=== PATIENT | female | born 1940 | race Caucasian/White ===

== ENCOUNTER → 2016-04-16 09:29 | Outpatient (CLI) | payer MEDICARE ==
[2016-03-03 06:26] VITALS: BMI 40.6
[~2016-04-16 09:29] MED LIST: ADVAIR HFA [SP]12 GM INH; ALBUTEROL2.5 MG/3 M INH; BUMEX 1 MG TAB1 MG PO; BUMEX 1 MG/1 MG/4 ML IV; CARTIA XT120 MG PO; CELEXA20 MG PO; COUMADIN1 MG PO; COUMADIN2 MG PO; CYCLOBENZAPRINE10 MG PO; FLUTICASONE PRO16 GM NASAL; FUROSEMIDE40 MG PO; HYDROCODON-ACE1 EAC7 PO; IPRAT-ALBUT 0.5-3 ML UPD; K-DUR20 MEQ PO; LEVAQUIN500 MG PO; METOLAZONE2.5 MG PO; PRAVACHOL40 MG PO; PROAIR HFA8.5 GM INH; PROPAFENONE HC150 MG PO; PROTONIX40 MG PO; SINGULAIR10 MG PO; STERAPRED 5MG 65 M1 PO; SYMBICORT 16010.2 GM INH; VIBRAMYCIN 100100 MG PO; VITAMIN D31000 UNI2 PO
== END | disposition home or self-care (01) ==
LOC: D.CT 09:29
DX: D12.6 Benign neoplasm of colon, unspecified (principal)

== ENCOUNTER 2016-05-05 07:30 | Inpatient (IN) | payer MEDICARE ==
[2016-05-02 11:55] LABS: HEMATOCRIT 37.4 % (36.0-48.0); HEMOGLOBIN 11.2 g/dL (12-16); MCH 27.3 pg (26.0-34.0); MCHC 29.9 g/dL (31.0-37.0); MCV 91.2 fL (80.0-100.0); RBC 4.1 10x6/uL (4.00-5.40); RDW 16.9 % (11.5-14.5); WBC 15.2 10x3/uL (4.8-10.8)
[2016-05-02 12:13] LABS: ANION GAP 9.5 mmol/L (8-16); CALCIUM 9.3 mg/dL (8.5-10.1); CARBON DIOXIDE 39.8 mmol/L (21.0-32.0); POTASSIUM - SERUM 5.3 mmol/L (3.5-5.1)
[~2016-05-05] VITALS: Ht 165.1 cm; Wt 109.8 kg
[~2016-05-05 07:30] MED LIST changes: -ADVAIR HFA [SP]12 GM INH; -BUMEX 1 MG TAB1 MG PO; -BUMEX 1 MG/1 MG/4 ML IV; -COUMADIN1 MG PO; -FLUTICASONE PRO16 GM NASAL; -IPRAT-ALBUT 0.5-3 ML UPD; -K-DUR20 MEQ PO; -LEVAQUIN500 MG PO; -PROTONIX40 MG PO; -STERAPRED 5MG 65 M1 PO
[2016-05-05 08:25] LABS: APTT 25.4 SECONDS (22.8-39.4); INR 1.05 (0.85-1.17); PROTIME 13.6 SECONDS (11.6-15.0)
[2016-05-05 08:39] VITALS: BP 149/85; BMI 40.3
--- NOTE | 2016-05-05 13:23 | NUR ---
1420 UPDATED ON PROGRESS THEY WILL REMAIN AT EXT 2500 IN OUTPATIENT WAITING ROOM SO WE CAM UPDATE THEM HOURLY AND DR COTTO CAN FIND THEY AFTER THE SUGERY IS COMPLETED
[2016-05-05 15:20] VITALS: BP 145/76
[2016-05-05 15:24] VITALS: BP 145/76; BMI 40.3
--- NOTE | 2016-05-05 15:27 | NUR ---
RECIEVED TO ROOM 2201 FROM RECOVERY ROOM VIUA BED ACCOMPANIED BY SPOSE NOTED 3 DRESSING INTACT TO ABDOMEN LAP SITED 1 LARGE LOWER MIDLINE 2 SMALL 1 MIDLINE WITH SCANT DRAINAGE NOT3ED TO DRESSING 1 SMALL TO LEFT UPPER QUADRANT NO DRAINAGE NOTED. AROUSED TO VERBAL STIMULI AND ANSWERS QUESTIONS APPROPRIATLY. KO CATHETER IN PLACE AND PATENT TO CLEAR YELLOW URINE TO GRAVILTY DRAIN PIV TO RIGHT WRIST PATENT TO FLUIDS PER ORDER.
[2016-05-05 19:00] VITALS: BP 155/87
--- NOTE | 2016-05-05 19:20 | NUR ---
RECIEVED SHIFT REPORT. PT IS LYING IN BED. ALERT AND ORIENTED AND ABLE TO VERBALIZE NEEDS. IV IS PATENT AND FLUIDS ARE RUNNING PER ORDER. O@ 2 PER NASAL CANNULA. DRESSINGS TO ABDOMEN C/D/I. PT STATES PAIN IS 3/10. NO NEEDS ARE VERBALIZED AT THIS TIME. AT BEDSIDE. WILL CONTINUE TO MONITOR. SIDE RAILS ARE UP X 2. BED IS IN LOWEST POSITION. SCD'S ON. CALL LIGHT IS WITHIN REACH.
--- NOTE | 2016-05-05 21:21 | NUR ---
SHIFT ASSESSMENT COMPLETED. NIGHT MEDS GIVEN WITH NO PROBLEMS. NO NEEDS ARE VOICED. WILL MONITOR. SIDE RAILS X 2. BED LOW. CALL LIGHT IN REACH. AT BEDSIDE.
--- NOTE | 2016-05-05 23:07 | NUR ---
PT C/O PAIN 12/14. MORPHINE SQUARE CUTTER HOOKED UP PER ORDER. INSTRUCTIONS ON USE PROVIDED TO PT. UNDERSTANDING VERBALIZED. SIDE RAILS X 2. BED LOW. CALL LIGHT IN REACH.
[2016-05-06 04:00] VITALS: BP 147/82
[2016-05-06 06:46] LABS: HEMATOCRIT 33.9 % (36.0-48.0); HEMOGLOBIN 10.1 g/dL (12-16); MCH 26.7 pg (26.0-34.0); MCHC 29.8 g/dL (31.0-37.0); MCV 89.7 fL (80.0-100.0); PLATELET COUNT 483 10x3/uL (130-400); RBC 3.78 10x6/uL (4.00-5.40); WBC 26.5 10x3/uL (4.8-10.8)
[2016-05-06 07:07] LABS: ANION GAP 12.3 mmol/L (8-16); CALCIUM 9.2 mg/dL (8.5-10.1); CARBON DIOXIDE 30.7 mmol/L (21.0-32.0); CREATININE - SERUM 1.3 mg/dL (0.6-1.3); MAGNESIUM - SERUM 1.6 mg/dL (1.8-2.4)
[2016-05-06 07:45] LABS: LYMPHOCYTES 5 % (15-50); MONOCYTES 10 % (2-11); NEUTROPHILS 84 % (40-80); PLATELET ESTIMATE INCREASED
--- NOTE | 2016-05-06 08:00 | NUR ---
PT ASSESSMENT COMPLETE NO ACUTE DISTRESS NOTED DRESSING X 3 INTACT CLEAN AND DRY TO ABDOMEN. REMAINS NPO EXCEPT ICE CHIPS AND SIPS WITH MEDS. SEE FLOWSHEET FOR ASSESSMENT
--- NOTE | 2016-05-06 08:11 | OP ---
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 PROCEDURE PERFORMED: Laparoscopic right hemicolectomy. ANESTHESIA: General. COMPLICATIONS: None. SPECIMENS: Right colon. Case was clean contaminated. ESTIMATED BLOOD LOSS: 75 cc. OPERATIVE COURSE: After consent was obtained, the patient was taken to the operating room and placed in the supine position on the operating table. Next, general anesthesia was given via endotracheal intubation. Thereafter, a timeout was taken to confirm the correct patient and procedure. The abdomen was prepped and draped in typical sterile fashion. An Ioban dressing was placed. Local anesthetic was injected just above the umbilicus. A stab incision was made with 11-blade scalpel. Using a 5-mm bladeless optical trocar, the abdomen was entered under direct laparoscopic vision. Adequate pneumoperitoneum was achieved. Abdominal cavity was inspected. No evidence of bowel injury. No evidence of bleeding. The patient had adhesions of the greater omentum to her ventral hernia repair mesh. The greater omentum was gently swept off the mesh in position with the Harmonic scalpel dissection. Once this was complete, a second 5-mm trocar was placed into the suprapubic position, a 12-mm trocar was placed in the left lateral quadrant. At this time, the colon was identified. The cecum was mobilized off the lateral pelvic side wall. The white line of Toldt was taken with the Harmonic scalpel and blunt dissection. There was a large cyst associated with the right kidney, which required dissection to free the colon. The hepatic flexure is taken with the Harmonic scalpel. The ileocolonic vessels were identified. A mesenteric window was created. The vessels were then taken with the vascular load linear cutting stapler. Next, the small lower midline incision was made with a 15 blade scalpel. Dissection continued to the level of the external oblique fascia using electrocautery. The 5-mm trocar removed. The external oblique fascia was opened with electrocautery. At this time, the remaining portion of the incision was made, first fascia was opened direct vision, then the Harmonic scalpel and Adrian retractor was replaced. The GelPort was placed. The abdomen was reinsufflated. The remaining small portion of the mobilization of transverse colon was completed. The cecum was grasped and delivered extracorporealized through the Adrian retractor, the GelPort was removed. A mesenteric window was created in the transverse colon. The colon was transected with the 60 green load stapler. At approximately 6-8 cm on the terminal ileum, a second mesenteric window was created at the termial. The ileum was transected with a green load stapler. Mesentery was taken with the Harmonic scalpel. The specimen was then passed off the field and sent for permanent pathology. Next, a functional [id number] OPERATIVE REPORT [id number] IVNÁ NEWMAN anastomosis was created. Enterotomies were created using the 6 mm green load stapler, a common enterotomy was created. A second ____ was then used to close the common enterotomy. The staple line was then created using a 2-0 Stratafix suture and the ileocolonic anastomosis returned to the abdomen. An angioport was replaced. The abdomen was reinsufflated. Camera was reinserted. The abdominal cavity was inspected. There was no evidence of bowel injury. No evidence of bleeding. The abdomen was copiously irrigated and suctioned. The ileocolic anastomosis was placed into the right upper quadrant. At this time, all remaining instruments were removed. The abdomen was desufflated. Trocars removed. The GelPort was removed. The fascia was closed with a #1 looped PDS. Skin was closed with almita. At the end of the case, all needle and instrument counts were correct. No complications occurred. The patient was extubated and transferred to the PACU in stable condition. TRANSINT:[id number] Voice Confirmation ID: [id number] DOCUMENT ID: [id number] LORENZO COTTO MD at 0811 CC: [id number] DICTATION DATE: 05/05/16 1458 RESOURCE PROGRAM TEACHER: 05/05/16 2308 ADM IN [id number] [place] [address]
--- NOTE | 2016-05-06 08:30 | NUR ---
LYING IN BED,WITHOUT DISTRESS.CALL LIGHT IN REACH
[2016-05-06 08:39] VITALS: BP 154/84
[2016-05-06 11:08] VITALS: Ht 165.1 cm; Wt 109.8 kg
--- NOTE | 2016-05-06 11:38 | NUR ---
Patient Name: IVÁN NEWMAN Admission Status: Elective Accout number: [id number] Admission Date: 05-05-2016 : 1940 Admission Diagnosis: Attending: SKYE Current LOS: 1 Anticipated DC Date: 05-06-2016 Planned Disposition: Home Primary Insurance: [employer] PF Discharge Planning Comments: CM MET WITH PATIENT REGARDING D/C NEEDS AND PLANS. PATIENT STATED SHE LIVES WITH HER SPOUSE (ZACK) AND HE WILL DRIVE HER HOME AT DISCHARGE. PATIENT STATED SHE HAS A RAMP TO ENTER HOME AND NO STAIRS INSIDE. PATIENT STATED SHE IS INDEPENDENT WITH HER CARE AND HAS A WALKER, WHEELCHAIR, OXYGEN, NEBULIZER, AND PORTABLE O2 AT HOME. [email or web address] IS THE SUPPLIER FOR HER OXYGEN PER PATIENT. PATIENTS PCP IS DR. MELENDEZ AND PHARMACY IS [facility]. PATIENT DOES NOT WANT HOME HEALTH AT THIS TIME. PATIENT STATED SHE WANTS TO WAIT AND SEE WHAT DOCTOR SAYS. CM WILL CONTINUE TO FOLLOW PATIENT WITH D/C NEEDS AND PLANS. PCP DR. [facility]- [phone] ZACK (SPOUSE) [phone] Heavy Lift Rigger: Lexiepolly Berger Is the patient Alert and Oriented? Yes 0 * How many steps to enter\exit or inside your home? RAMP 0 * PCP DR. MELENDEZ 0 * Pharmacy [facility] [place] 0 * Preadmission Environment Home with Family 0 * ADLs Independent 0 * Equipment Nebulizer Oxygen Walker Wheelchair 0 * Other Equipment PORTABLE O2 OXYGEN SUPPLIE BY [email or web address] 0 * List name and contact numbers for known caregivers / representatives who currently or will assist patient after discharge: ZACK [phone] 0 * Community resources currently utilized None 0 * Additional services required to return to the preadmission environment? Yes 0 * Can the patient safely return to the preadmission environment? Yes 0 * Has this patient been hospitalized within the prior 30 days at any hospital? No 0 Grand Total: 0
[2016-05-06 12:26] VITALS: BP 121/77
[2016-05-06 16:58] VITALS: BP 130/80
--- NOTE | 2016-05-06 18:30 | NUR ---
PT WAS UP WITH PHYSICAL THERAPY TODAY AMBULATED WELL DIET PROGRESSED TO CLEAR LIQUIDS PER DR KIRTI JOHNSON.
[2016-05-06 19:00] VITALS: BP 125/71
--- NOTE | 2016-05-06 19:15 | NUR ---
RECIEVED SHIFT REPORT. PT IS LYING IN BED. ALERT AND ORIENTED AND ABLE TO VERBALIZE NEEDS. IV IS PATENT AND FLUIDS ARE RUNNING PER ORDER. O2 @ 2 PER NASAL CANNULA. DRESSINGS TO ABDOMEN C/D/I. PT IS AMBULATORY WITH ASSISTANCE. KO IS DRAINING URINE BY GRAVITY. PT STATES PAIN IS 1/10 WITH CASTINGS DRAFTER PUMP. SCD'S ON. NO NEEDS ARE VERBALIZED AT THIS TIME. WILL CONTINUE TO MONITOR. AT BEDSIDE. SIDE RAILS ARE UP X 2. BED IS IN LOWEST POSITION. CALL LIGHT IS WITHIN REACH.
--- NOTE | 2016-05-06 21:11 | NUR ---
SHIFT ASSESSMENT COMPLETED. NIGHT MEDS GIVEN WITH NO PROBLEMS. NO NEEDS ARE VOICED. WILL MONITOR. FAMILY AT BEDSIDE. SIDE RAILS X 2. BED LOW. CALL LIGHT IN REACH.
[2016-05-07 04:00] VITALS: BP 188/90
[2016-05-07 07:57] VITALS: BP 149/68
--- NOTE | 2016-05-07 08:15 | NUR ---
UP IN CHAIR AT THIS TIME. KO CATHETER PATENT AND DRAINING DARK, CONCENTRATED URINE WITHOUT DIFFICULTY. IV TO LEFT HAND PATENT WITH NO S/S OF INFILTRATION PRESENT. PT C/O PAIN 1/10 INCISIONALLY. MEDIA SENIOR RECRUITER IN USE FOR PAIN CONTROL. DRESSING TO ABDOMEN INTACT. BOWEL SOUNDS HYPOACTIVE X4 QUADS. OXYGEN ON 2L VIA NC, WHICH IS PT'S HOME DOSE. AT BEDSIDE. ALERT AND ORIENTED X4. CALL LIGHT IN REACH AND PT TOLERATING CLEAR LIQUID DIET WITHOUT DIFFICULTY. PT SAID SHE DID PASS FLATUS LAST NIGHT. DENIES FURTHER NEEDS. WILL CONTINUE WITH PLAN OF CARE.
[2016-05-07 08:56] LABS: BASOPHILS 0.1 % (0.0-2.0); EOSINOPHILS 0.2 % (0-7); HEMATOCRIT 30.8 % (36.0-48.0); HEMOGLOBIN 9.1 g/dL (12-16); IMMATURE GRANULOCYTES 0.5 % (0-5); LYMPHOCYTES 12.7 % (15-50); MCH 27.3 pg (26.0-34.0); MCHC 29.5 g/dL (31.0-37.0); MCV 92.5 fL (80.0-100.0); MEAN PLATELET VOLUME 8.8 fL (7.4-10.4); MONOCYTES 13.9 % (2-11); NEUTROPHILS 72.6 % (40-80); PLATELET COUNT 367 10x3/uL (130-400); RBC 3.33 10x6/uL (4.00-5.40); RDW 17.2 % (11.5-14.5)
[2016-05-07 08:59] LABS: ANION GAP 8.5 mmol/L (8-16); CALCIUM 9.2 mg/dL (8.5-10.1); CARBON DIOXIDE 35.2 mmol/L (21.0-32.0); CREATININE - SERUM 1.4 mg/dL (0.6-1.3); POTASSIUM - SERUM 4.7 mmol/L (3.5-5.1)
--- NOTE | 2016-05-07 10:50 | NUR ---
BACK IN BED AT THIS TIME. IV LASIX ADMINISTERED PER ORDER AND IV FLUIDS DECREASED TO 75 ML/HR. PT DENIES PAIN AT PRESENT TIME. CALL LIGHT IN REACH, WILL CONTINUE WITH PLAN OF CARE.
[2016-05-07 11:57] VITALS: BP 111/76
--- NOTE | 2016-05-07 12:50 | NUR ---
OBSERVED KO BAG AT THIS TIME AND URINE PRODUCTION HAS INCREASED WITH AN ADDED 400ML OF CLEAR, YELLOW URINE IN THE BAG SINCE ADMINISTRATION OF IV LASIX. PT DENIES NEEDS. SPOOLER OPERATOR IN USE FOR PAIN. WILL CONTINUE WITH PLAN OF CARE.
--- NOTE | 2016-05-07 14:40 | NUR ---
SCHEDULED MEDICATIONS ADMINSITERED AT THIS TIME. KO CATHETER D/C WITH CATH TIP INTACT. PT TOLERATED WITHOUT COMPLAINTS. TOLD PT TO CALL WHEN SHE FELT THE URGE TO VOID. PT VERBALIZED UNDERSTANDING. CALL LIGHT IN REACH, UP IN CHAIR AT THIS TIME. WILL CONTINUE WITH PLAN OF CARE.
[2016-05-07 16:23] VITALS: BP 130/55
--- NOTE | 2016-05-07 17:03 | NUR ---
OT NOTE: PT COMPLETED BUE AROM EXERCISES IN ALL PLANE OF MOTION FOR INCREASED ACTIVITY TOLERANCE. PT COMPLETED BED MOBILITY WITH HARI Burton. THANK YOU, AURELIO UPTON/Dann
--- NOTE | 2016-05-07 17:30 | NUR ---
ASSISTED PT TO SIT UP AT THE BEDSIDE TO HAVE DINNER AT THIS TIME. PT HAS NOT VOIDED AT THIS TIME, BUT DOES NOT FEEL THE URGE TO VOID AND IS NOT EXPERIENCING BLADDER DISTENTION. DENIES FURTHER NEEDS. ASSISTANT TRACK AND FIELD COACH REFILLED PER ORDER. CALL LIGHT IN REACH, WILL CONTINUE WITH PLAN OF CARE.
--- NOTE | 2016-05-07 20:42 | NUR ---
AWAKE,ALERT,NO COMPLAINTS VOICED, IV INFUSING TO LEFT HAND AT 75 CC/HR WIHTOUT REDNESS OR EDEMA NOTED.DRSG TO ABD DRY AND INTACT. BOWEL SOUNDS PRESENT. CLIENT SERVICES DIRECTOR MORPHINE IN USE FOR PAIN CONTRO.CL IN REACH.
[2016-05-07 21:00] VITALS: BP 147/77
[2016-05-08] VITALS: BP 145/78
--- NOTE | 2016-05-08 01:54 | NUR ---
RESTING QUIETLY. NO DISTRESS NOTED. CL IN REACH. FAMILY REMAINS AT BEDSIDE.
[2016-05-08 04:00] VITALS: BP 152/80
--- NOTE | 2016-05-08 04:00 | NUR ---
PATIENT SLEEPING WITH NO DISTRESS NOTED. O2 @ 2L VIA NC. IV TO RIGHT HAND PATENT WITH NO REDNESS OR SWELLING. DRESSINGS TO ABD CDI. SCD'S ON. DAUGHTER AT BEDSIDE. SRX2. BED LOW. CALL LIGHT WITHIN REACH.
[2016-05-08 05:52] LABS: BASOPHILS 0.1 % (0.0-2.0); EOSINOPHILS 0.5 % (0-7); HEMATOCRIT 29.7 % (36.0-48.0); HEMOGLOBIN 8.7 g/dL (12-16); IMMATURE GRANULOCYTES 0.4 % (0-5); LYMPHOCYTES 13.6 % (15-50); MCH 27.2 pg (26.0-34.0); MCHC 29.3 g/dL (31.0-37.0); MCV 92.8 fL (80.0-100.0); MEAN PLATELET VOLUME 9.1 fL (7.4-10.4); MONOCYTES 12.7 % (2-11); NEUTROPHILS 72.7 % (40-80); PLATELET COUNT 344 10x3/uL (130-400); RDW 17.2 % (11.5-14.5); WBC 17.5 10x3/uL (4.8-10.8)
--- NOTE | 2016-05-08 06:03 | NUR ---
NO CHANGE IN ASSESSMENT. CL IN REACH.
[2016-05-08 06:30] LABS: ANION GAP 11.8 mmol/L (8-16); CALCIUM 8.9 mg/dL (8.5-10.1); CARBON DIOXIDE 31.4 mmol/L (21.0-32.0); CREATININE - SERUM 1.1 mg/dL (0.6-1.3); MAGNESIUM - SERUM 1.3 mg/dL (1.8-2.4); PHOSPHOROUS 3.7 mg/dL (2.5-4.9); POTASSIUM - SERUM 5.2 mmol/L (3.5-5.1)
--- NOTE | 2016-05-08 07:52 | NUR ---
PATIENT REMAINS IN CONTACT ISOLATION FOR E COLI IN URINE. ALERT/ORIENT X4. VOICES NO NEES THIS AM. CALL LIGHT WITHIN REACH
--- NOTE | 2016-05-08 07:56 | NUR ---
PATIENTS DAUGHTER IN ROOM. PATIENT ALERT/ORIENT X4. OXYGEN ON AT 2L PER N/C. D5 LR WITH 20K RUNNING. RIGHT HAND PHERIAL. SCD'S ON. CALL LIGHT WITHIN REACH. VOICES NO PAIN/DISC OR OTHER NEEDS AT THIS TIME
[2016-05-08 08:08] VITALS: BP 153/78
--- NOTE | 2016-05-08 09:45 | NUR ---
PATIENT REFUSED FLONASE NASAL SPRAY
--- NOTE | 2016-05-08 10:24 | NUR ---
NUTRITION MONITORING & EVAL CHART RRVIEWED. CLEAR LIQUID DIET STARTED. WILL MONITOR DIET ADVANCEMENT, PT PROGRESS. RD FOLLOWING
[2016-05-08 11:18] VITALS: BP 120/58
--- NOTE | 2016-05-08 13:49 | NUR ---
PATIENT CONTINUES ON TELEMTRY. CONTROLED A-FIB, WITH BBB OF 85. OXYGEN REMAINS ON PER N/C AT 2L. PO 97%
[2016-05-08 15:15] VITALS: BP 127/62
--- NOTE | 2016-05-08 16:39 | NUR ---
OT NOTE: PT COMPLETED BED MOB WITH MOD/MAX A. PT COMPLETED BUE AROM EXERCISES FOR INCREASED I WITH ADLS. THANK YOU, AURELIO UPTON/Dann
--- NOTE | 2016-05-08 17:30 | NUR ---
PATIENTS IN ROOM WITH PATIENT. ON A CLEAR LIQUID DIET. TOLERATING WELL.
[2016-05-08 20:00] VITALS: BP 145/77
[2016-05-09] VITALS: BP 136/62
--- NOTE | 2016-05-09 01:10 | NUR ---
REC'D. AT CHGE OF SHIFT IN BED WATCHING TV. AT BEDSIDE. DENIES ANY PAIN NAUSEA OR VOMITTING AT PRESENT TIME
[2016-05-09 04:00] VITALS: BP 152/77
--- NOTE | 2016-05-09 04:28 | NUR ---
PATIENT SLEEPING WITH NO DISTRESS NOTED. AGREE WITH SERVICE STATION ATTENDANT ASSESSMENT.
[2016-05-09 05:55] LABS: BASOPHILS 0.1 % (0.0-2.0); EOSINOPHILS 0 % (0-7); HEMATOCRIT 28.4 % (36.0-48.0); HEMOGLOBIN 8.7 g/dL (12-16); IMMATURE GRANULOCYTES 0.5 % (0-5); LYMPHOCYTES 5.1 % (15-50); MCH 27.6 pg (26.0-34.0); MCHC 30.6 g/dL (31.0-37.0); MEAN PLATELET VOLUME 9.1 fL (7.4-10.4); MONOCYTES 2.4 % (2-11); NEUTROPHILS 91.9 % (40-80); PLATELET COUNT 333 10x3/uL (130-400); RBC 3.15 10x6/uL (4.00-5.40); RDW 17.3 % (11.5-14.5); WBC 16.6 10x3/uL (4.8-10.8)
[2016-05-09 06:00] LABS: MCV 90.2 fL (80.0-100.0)
[2016-05-09 06:24] LABS: CARBON DIOXIDE 29.9 mmol/L (21.0-32.0); CREATININE - SERUM 0.9 mg/dL (0.6-1.3); POTASSIUM - SERUM 4.9 mmol/L (3.5-5.1)
[2016-05-09 06:27] LABS: MAGNESIUM - SERUM 2.3 mg/dL (1.8-2.4); PHOSPHOROUS 2.6 mg/dL (2.5-4.9)
[2016-05-09 07:55] VITALS: BP 134/80
--- NOTE | 2016-05-09 09:00 | NUR ---
PT UP IN CHAIR, ASSESSMENT COMPLETE, BOWEL SOUNDS HYPOACTIVE QX4, EXPIRATORY WHEEZING ON RIGHT SIDE, NO COMPLAINTS OF PAIN AT THIS TIME, JUST FINISHED BATH AND MORNING ADLS, O2 @ 2L, AT BEDSIDE, ALERT AND ORIENTED, CALL LIGHT WITHIN REACH, WILL CONTINUE TO MONITOR.
--- NOTE | 2016-05-09 10:00 | NUR ---
AMBULATING IN HALLWAY INDEPENDENTLY AT THIS TIME. DENIES NEEDS. ALERT AND ORIENTED X4 WITH RESPIRATIONS EVEN AND NON LABORED. WILL CONTINUE WITH PLAN OF CARE.
--- NOTE | 2016-05-09 10:00 | NUR ---
AMBULATING IN HALLWAY AT THIS TIME WITH PHYSICAL THERAPY. OXYGEN ON 2L VIA NC WITH RESPIRATIONS EVEN AND NON LABORED. ALERT AND ORIENTED X4. WILL CONTINUE WITH PLAN OF CARE.
--- NOTE | 2016-05-09 11:10 | NUR ---
PT MEDICATIONS ADMINISTERED PER eMAR, PT UP TO BATHROOM WITH WALKER.
[2016-05-09 11:29] VITALS: BP 161/97
--- NOTE | 2016-05-09 14:10 | NUR ---
PT TURKEY PINNER DISCONTINUED, ORAL PAIN MEDICATION STARTED, IV SALINE LOCKED EXCEPT WHEN ANTIBIOTIC INFUSING. WILL CONTINUE PLAN OF CARE, CALL LIGHT IN REACH
[2016-05-09 15:04] VITALS: BP 155/90
--- NOTE | 2016-05-09 17:30 | NUR ---
REMAINS UP IN CHAIR AND TOLERATING FULL LIQUID DIET WITHOUT DIFFICULTY. DENIES PAIN AT THIS TIME. CALL LIGHT IN REACH, WILL CONTINUE WITH PLAN OF CARE.
[2016-05-09 20:00] VITALS: BP 155/77
[2016-05-10] VITALS: BP 150/75
--- NOTE | 2016-05-10 00:40 | NUR ---
PT SITTING IN CHAIR AT BEDSIDE PLAYING CARDS WITH FAMILY IV D/C DUE TO IV CATH PINCHED OFF AND NOT INFUSING 24G STARTED IN RIGHT THUMB AND FLUSHED WITH NO PROBLEM SECURED AND IVP FROM LEFT WRIST REMOVED AND CATH INTACT NO INFILTRATION OBSERVED. CALL LIGHT IN REACH SRX2 BED LOW AND LOCKED CALL LIGHT IN REACH SRX2 WILL MONITOR
[2016-05-10 04:00] VITALS: BP 158/91
[2016-05-10 05:04] LABS: BASOPHILS 0 % (0.0-2.0); EOSINOPHILS 0 % (0-7); HEMATOCRIT 28.4 % (36.0-48.0); HEMOGLOBIN 8.5 g/dL (12-16); IMMATURE GRANULOCYTES 0.5 % (0-5); LYMPHOCYTES 7.7 % (15-50); MCH 26.9 pg (26.0-34.0); MCHC 29.9 g/dL (31.0-37.0); MCV 89.9 fL (80.0-100.0); MEAN PLATELET VOLUME 8.7 fL (7.4-10.4); MONOCYTES 5.6 % (2-11); NEUTROPHILS 86.2 % (40-80); RBC 3.16 10x6/uL (4.00-5.40); RDW 17.3 % (11.5-14.5); WBC 15.8 10x3/uL (4.8-10.8)
[2016-05-10 05:13] LABS: PLATELET COUNT 425 10x3/uL (130-400)
[2016-05-10 05:21] LABS: ANION GAP 10.1 mmol/L (8-16); CALCIUM 8.9 mg/dL (8.5-10.1); CARBON DIOXIDE 31.5 mmol/L (21.0-32.0); CREATININE - SERUM 1.1 mg/dL (0.6-1.3); INR 1.35 (0.85-1.17); POTASSIUM - SERUM 4.6 mmol/L (3.5-5.1); PROTIME 16.5 SECONDS (11.6-15.0)
[2016-05-10 05:27] LABS: PHOSPHOROUS 3.5 mg/dL (2.5-4.9)
--- NOTE | 2016-05-10 07:05 | NUR ---
PATIENT RECEIVED SITTING UP ON SIDE OF BED ALERT. NO SIGNS OF DISTRESS NOTED. DENIES PAIN. BED IN LOW POSITION. CALL LIGHT IN REACH. GUEST AT BEDSIDE.
[2016-05-10 08:28] VITALS: BP 164/89
--- NOTE | 2016-05-10 09:08 | NUR ---
SITTING UP ON SIDE OF BED ALERT WITH FAMILY PRESENT. NO SIGNS OF DISTRESS NOTED. SCHEDULED MEDICATION ADMINISTERED. IVF INITIATED PER ORDER. IV TO RIGHT HAND PATENT. FLUSHES EASY. NO REDNESS OR INFLAMMATION NOTED. DENIES PAIN AND OTHER NEEDS. SIDE RAILS UP X2. BED IN LOW POSITION. CALL LIGHT IN REACH.
--- NOTE | 2016-05-10 10:55 | NUR ---
PATIENT IN MID DOM[place] POSITION RESTING WITH EYES CLOSED. RESPIRATIONS EVEN AND UNLABORED. WAKES EASY. SCHEDULED MEDICATION ADMINISTERED. FAMILY AT BEDSIDE. DENIES PAIN. SIDE RAILS UP X2. BED IN LOW POSITION. CALL LIGHT IN REACH.
[2016-05-10 12:00] VITALS: BP 155/90
--- NOTE | 2016-05-10 13:45 | NUR ---
PATIENT SITING UP IN CHAIR ALERT. RESPIRATIONS EVEN AND UNLABORED. RATES PAIN 7/10. 1 TAB NORCO ADMINISTERED PER PRN ORDER. DENIES FURTHER NEEDS. CALL LIGHT IN REACH. FAMILY PRESENT.
[2016-05-10 16:03] VITALS: BP 130/70
--- NOTE | 2016-05-10 18:00 | NUR ---
PATIENT ALERT IN HIGH DOMINGUEZ POSITION. NO SIGNS OF DISTRESS NOTED. DENIES NEEDS. FAMILY AT BEDSIDE. SIDE RAILS UP X2. BED IN LOW POSITION. CALL LIGHT IN REACH.
[2016-05-10 20:00] VITALS: BP 161/82
--- NOTE | 2016-05-10 21:19 | NUR ---
PT SITTING IN CHAIR AT BEDSIDE FAMILY IN ROOM AT PT SIDE PT STATES " IT IS A BETTER NIGHT I HAD A BAD NIGHT LAST NIGHT" PT DENIES NEEDS WANTS OR PAIN AT THIS TIME. IVP TO RIGHT HAND NO INFILTRATION OBSERVED BED LOW AND LOCKED CALL LIGHT IN REACH SRX2 RESPERATIONS EVEN AND UNLABORED WILL MONITOR
[2016-05-11 04:00] VITALS: BP 168/79
[2016-05-11 05:14] LABS: BASOPHILS 0 % (0.0-2.0); EOSINOPHILS 0 % (0-7); HEMATOCRIT 29.1 % (36.0-48.0); HEMOGLOBIN 8.9 g/dL (12-16); IMMATURE GRANULOCYTES 0.5 % (0-5); MCH 27.3 pg (26.0-34.0); MCHC 30.6 g/dL (31.0-37.0); MCV 89.3 fL (80.0-100.0); MEAN PLATELET VOLUME 8.8 fL (7.4-10.4); MONOCYTES 6.6 % (2-11); NEUTROPHILS 85.9 % (40-80); PLATELET COUNT 421 10x3/uL (130-400); RBC 3.26 10x6/uL (4.00-5.40); RDW 17.5 % (11.5-14.5); WBC 14.9 10x3/uL (4.8-10.8)
[2016-05-11 05:36] LABS: INR 1.54 (0.85-1.17); PROTIME 18.4 SECONDS (11.6-15.0)
[2016-05-11 05:38] LABS: ALBUMIN 2.9 g/dL (3.4-5.0); ANION GAP 13.4 mmol/L (8-16); BILIRUBIN - DIRECT 0.19 mg/dL (0.00-0.30); BILIRUBIN - INDIRECT 0.41 mg/dL (0.00-1.00); BILIRUBIN - TOTAL 0.6 mg/dL (0.2-1.3); CARBON DIOXIDE 30.9 mmol/L (21.0-32.0); MAGNESIUM - SERUM 2.1 mg/dL (1.8-2.4); PROTEIN - SERUM 7.2 g/dL (6.4-8.2)
[2016-05-11 05:39] LABS: CREATININE - SERUM 1.4 mg/dL (0.6-1.3)
[2016-05-11 05:40] LABS: POTASSIUM - SERUM 5.3 mmol/L (3.5-5.1)
--- NOTE | 2016-05-11 07:05 | NUR ---
PATIENT RECEIVED SITTING UP IN CHAIR AT BEDSIDE ALERT. NO SIGNS OF DISTRESS NOTED. DENIES NEEDS. AT BEDSIDE. CALL LIGHT IN REACH.
--- NOTE | 2016-05-11 08:53 | NUR ---
PATIENT SITTING UP IN CHAIR AT BEDSIDE. RESPIRATIONS EVEN AND UNLABORED. SCHEDULED MEDICATION ADMINISTERED WELL PRN NORCO AND ZOFRAN. DENIES FURTHER NEEDS. CALL LIGHT IN REACH.
[2016-05-11 09:00] VITALS: BP 151/82
--- NOTE | 2016-05-11 11:07 | NUR ---
PATIENT SITTING UP IN CHAIR ALERT VISITING WITH FAMILY. RESPIRATIONS EVEN AND UNLABORED. DENIES PAIN AND OTHER NEEDS. CALL LIGHT IN REACH.
[2016-05-11 12:30] VITALS: BP 150/89
--- NOTE | 2016-05-11 14:35 | NUR ---
PATIENT SITTING UP IN CHAIR ALERT. NO SIGNS OF DISTRESS NOTED. SCHEDULED MEDICATION ADMINISTERED. CALL LIGHT IN REACH. DENIES NEEDS.
[2016-05-11 16:22] VITALS: BP 133/69
--- NOTE | 2016-05-11 18:00 | NUR ---
SITTING UP IN CHAIR AT BEDSIDE. NO SIGNS OF DISTRESS NOTED. DENIES PAIN. CALL LIGHT IN REACH
[2016-05-11 21:34] VITALS: BP 146/72
--- NOTE | 2016-05-11 23:01 | NUR ---
PT SITTING UP ON SIDE OF BED FAMILY IN ROOM AT SIDE RESPERATIONS EVEN AND UNLABORED IVP INFUSING AND NO INFILTRATION OR REDNESS OBSERVED PT DENIES NEEDS OR WANTS AT THIS TIME CALL LIGHT IN REACH SRX2 BED LOW AND LOCKED WILL MONITOR
[2016-05-12 05:40] LABS: BASOPHILS 0.1 % (0.0-2.0); EOSINOPHILS 0 % (0-7); HEMATOCRIT 31.4 % (36.0-48.0); HEMOGLOBIN 9.7 g/dL (12-16); IMMATURE GRANULOCYTES 1.8 % (0-5); LYMPHOCYTES 9.2 % (15-50); MCH 27.5 pg (26.0-34.0); MCHC 30.9 g/dL (31.0-37.0); MEAN PLATELET VOLUME 8.9 fL (7.4-10.4); MONOCYTES 5.9 % (2-11); PLATELET COUNT 501 10x3/uL (130-400); RBC 3.53 10x6/uL (4.00-5.40); WBC 17.9 10x3/uL (4.8-10.8)
[2016-05-12 06:02] LABS: ANION GAP 13.9 mmol/L (8-16); CALCIUM 9.3 mg/dL (8.5-10.1); CARBON DIOXIDE 28.7 mmol/L (21.0-32.0); CREATININE - SERUM 1.4 mg/dL (0.6-1.3); MAGNESIUM - SERUM 2.3 mg/dL (1.8-2.4); POTASSIUM - SERUM 4.6 mmol/L (3.5-5.1)
--- NOTE | 2016-05-12 07:47 | NUR ---
PT ASSESSMENT COMPLETE AWAKE AND ALERT SITTING UP IN CHAIR AT BEDSIDE. COMPLAINS OF NAUSEA WITH VOMITING THIS AM STATED WAS GREEN/YELLOW COLOR. UPON EXAM NOTED TO HAVE NO BS AUSCULTATED IN GINNY OR LLQ WELL VERY HYPOACTIVE SOUNDS NOTED TO RUQ. STATED LAST BM WAS ON THURSDAY AND WAS SMALL STATES THAT SHE HAS NO APPITITE. PIV INFILTRATED TO RIGHT HAND IVF TURNED OFF FOR RESITE OF PIV. [place] INTACT TO MIDLINE LOWER ABDOMEN WELL LAP SITES X 2 BRUISING NOTED TO LOWER ABDOMEN. WILL MONITOR.
[2016-05-12 08:10] VITALS: BP 175/92
--- NOTE | 2016-05-12 14:24 | NUR ---
NUTRITION MONITORING & EVAL CHART REVIEWED. PT NOW NPO. D5W @ 100 CC/HR. RD FOLLOWING
[2016-05-12 16:26] VITALS: BP 160/102
--- NOTE | 2016-05-12 17:50 | NUR ---
OT NOTE: PT COMPLETED DYNAMIC SITTING BALANCE FOR INCREASED I WITH FUNCTIONAL AXS. PT COMPLETED HYGIENE TASK WITH SET UP. PT COMPLETED BUE AROM IN ALL PLANES OF MOTION FOR INCREASED ENDURANCE. THANK YOU, AURELIO UPTON/Dann
--- NOTE | 2016-05-12 18:12 | NUR ---
NGT DROPPED TO RIGHT NARE PER ORDER DR COTTO FOR DECOMPRESSION. HOOKED TO WALL SUCTION LIS PER RN ASSIST. IMMEDIATE RETURN OF 400 CC GREEN THICK FLUID FROM ABDOMEN. PT STATES AFTER NGT PLACMENT NAUSESA SUBSIDED. WILL MONITOR.
[2016-05-12 21:00] VITALS: BP 155/64
[2016-05-13 01:00] VITALS: BP 172/78
--- NOTE | 2016-05-13 04:00 | NUR ---
PATIENT ASLEEP IN CHAIR WITH NO DISTRESS NOTED. IN ROOM. CALL LIGHT WITHIN REACH.
[2016-05-13 05:00] VITALS: BP 157/96
[2016-05-13 05:59] LABS: BASOPHILS 0.1 % (0.0-2.0); EOSINOPHILS 0 % (0-7); HEMATOCRIT 30.3 % (36.0-48.0); HEMOGLOBIN 9.1 g/dL (12-16); IMMATURE GRANULOCYTES 1.7 % (0-5); LYMPHOCYTES 6.8 % (15-50); MCH 26.6 pg (26.0-34.0); MCV 88.6 fL (80.0-100.0); MEAN PLATELET VOLUME 8.7 fL (7.4-10.4); MONOCYTES 5.9 % (2-11); NEUTROPHILS 85.5 % (40-80); PLATELET COUNT 438 10x3/uL (130-400); RBC 3.42 10x6/uL (4.00-5.40); WBC 15.2 10x3/uL (4.8-10.8)
[2016-05-13 06:24] LABS: ANION GAP 11.3 mmol/L (8-16); CALCIUM 8.7 mg/dL (8.5-10.1); CARBON DIOXIDE 29.5 mmol/L (21.0-32.0); CREATININE - SERUM 1.1 mg/dL (0.6-1.3); MAGNESIUM - SERUM 2.2 mg/dL (1.8-2.4); POTASSIUM - SERUM 4.8 mmol/L (3.5-5.1)
--- NOTE | 2016-05-13 07:50 | NUR ---
PT UP USING BEDSIDE COMMODE WITH SPOUSE AT BEDSIDE. DENIES NEEDS AT THIS TIME. STATES SHE WILL PRESS CALL LIGHT WHEN SHE IS READY TO GET UP.
--- NOTE | 2016-05-13 08:15 | NUR ---
ASSISTED PT OFF BEDSIDE COMMODE AND INTO CHAIR WITH FEET UP . PT HAD SMALL BM, BROWN STOOL. ASSESSMENT COMPLETE. BOWEL SOUNDS HYPOACTIVE X4 QUADRENTS. PT DENIES NEEDS AT THIS TIME. BED LOW. PHONE AND CALL LIGHT IN REACH. SIDE RAILS UP X2.
[2016-05-13 08:18] VITALS: BP 168/82
--- NOTE | 2016-05-13 10:32 | NUR ---
AM MEDS GIVEN. PT DENIES NAUSEA AT THIS TIME. PT TRIED TO DRINK MILK OF MAGNESIA BUT WAS ONLY ABLE TO TAKE A FEW SIPS, STATES SHE CANNOT DRINK THE REST. REQUESTS TO GET UP TO USE BEDSIDE COMMODE. FAMILY MEMBER AT BEDSIDE. INSTRUCTED PT TO PRESS CALL LIGHT WHEN SHE IS READY TO GET UP.
--- NOTE | 2016-05-13 10:56 | NUR ---
PT UP FROM BEDSIDE COMMODE. SMALL AMOUNT OF LOOSE BROWN STOOL NOTED IN COMMODE. ASSISTED PT BACK INTO BED. ADMINISTERED SOLU-MEDROL IVP. PLACED PT ON LEFT SIDE TO ADMINISTER DULCOLOX SUPPOSITORY. PT REQUESTS TO REMAIN ON LEFT SIDE. STATES SHE IS COMFORTABLE. DENIES NEEDS AT THIS TIME. FAMILY MEMBER AT BEDSIDE. BED LOW. PHONE AND CALL LIGHT IN REACH. SIDE RAILS UP X2.
--- NOTE | 2016-05-13 11:48 | NUR ---
PT RESTING QUIETLY IN BED WITH EYES CLOSED, NO ACUTE DISTRESS NOTED AT THIS TIME. FAMILY MEMBER AT BEDSIDE. BED LOW. PHONE AND CALL LIGHT IN REACH. SIDE RAILS UP X2.
[2016-05-13 12:01] VITALS: BP 148/80
--- NOTE | 2016-05-13 13:08 | NUR ---
PT UP USING BEDSIDE COMMODE. PT HAD SMALL BROWN LOOSE BM. ASSISTED PT TO SIT ON SIDE OF BED TO EAT LUNCH. FAMILY MEMBER AT BEDSIDE. DENIES NEEDS AT THIS TIME. BED LOW. PHONE AND CALL LIGHT IN REACH. SIDE RAILS UP X2.
--- NOTE | 2016-05-13 13:47 | NUR ---
SALINE LOCKED PT IV TO AMBULATE WITH PT.
--- NOTE | 2016-05-13 14:45 | NUR ---
NOTIFIED DR. ALCALA CONCERNING PTS BP OF 70/42 AND HR OF 118. INFORMED DR. ALCALA PT HAS NOT HAD ANY BLOODY BMS SINCE LAST NIGHT AND THAT THE PT'S H&H WAS 8.3 AND 25.6. ALSO INFORMED HER THAT DR. ABREU ORDERED A 500 ML BOLUS AND 2 UNITS OF PRBC'S TO BE GIVEN. DR. ALCALA STATES TO MOVE PT TO ICU FOR CLOSER OBSERVATION AND CONTINUE WITH ORDERS TO INFUSE 2 UNITS OF PRBC'S.
[2016-05-13 14:59] VITALS: BP 157/69
--- NOTE | 2016-05-13 15:05 | NUR ---
PT SITTING UP ON SIDE OF THE BED. ADMINISTERED COUMADIN PO. BED LOW. PHONE AND CALL LIGHT IN REACH. SIDE RAILS UP X2. FAMILY MEMBERS AT BEDSIDE.
--- NOTE | 2016-05-13 15:56 | NUR ---
HAD A SMALL, MUD CONSISTENCY, BROWN BOWEL MOVEMENT WITH EASE AT THIS TIME. OCCUPATIONAL THERAPIST IN ROOM WORKING WITH PT AT THIS TIME.
--- NOTE | 2016-05-13 16:06 | NUR ---
OT NOTE: PT COMPLETED TOILETING WITH SBA. PT REQUIRED MAX A FOR TOILET HYGIENE. PT COMPLETED SIT TO STANDS AND TRANSFERS WITH SBA. PT COMPLETED ORAL CARE WITH SET UP. PT COMPLETED BUE AROM FOR INCREASED ACTIVITY TOLERANCE. THANK YOU, AURELIO UPTON/Dann
[2016-05-13 21:00] VITALS: BP 158/79
[2016-05-14 01:00] VITALS: BP 140/72
[2016-05-14 05:00] VITALS: BP 136/78
[2016-05-14 05:27] LABS: ANION GAP 8.3 mmol/L (8-16); CALCIUM 8.6 mg/dL (8.5-10.1); CREATININE - SERUM 1.1 mg/dL (0.6-1.3); MAGNESIUM - SERUM 2.2 mg/dL (1.8-2.4); POTASSIUM - SERUM 4.3 mmol/L (3.5-5.1)
[2016-05-14 05:28] LABS: BASOPHILS 0.1 % (0.0-2.0); EOSINOPHILS 0 % (0-7); HEMATOCRIT 28.7 % (36.0-48.0); HEMOGLOBIN 8.7 g/dL (12-16); IMMATURE GRANULOCYTES 2.5 % (0-5); LYMPHOCYTES 8.4 % (15-50); MCH 26.9 pg (26.0-34.0); MCHC 30.3 g/dL (31.0-37.0); MCV 88.6 fL (80.0-100.0); MEAN PLATELET VOLUME 8.7 fL (7.4-10.4); MONOCYTES 6.3 % (2-11); NEUTROPHILS 82.7 % (40-80); PLATELET COUNT 395 10x3/uL (130-400); RBC 3.24 10x6/uL (4.00-5.40); RDW 17.1 % (11.5-14.5); WBC 14.2 10x3/uL (4.8-10.8)
--- NOTE | 2016-05-14 07:30 | NUR ---
RECIEVED PT DURING WALKING ROUNDS. PT RESTING IN BED WITH NO COMPLAINTS OF PAIN OR DISCOMFORT AT THIS TIME. ASSESSMENT DONE PER FLOWSHEET. BED IN LOW POSITION AND CALL LIGHT WITHIN REACH. WILL CONTINUE TO MONITOR.
[2016-05-14 08:15] VITALS: BP 167/80
--- NOTE | 2016-05-14 08:20 | NUR ---
CM REASSESSMENT NOTE: PATIENT HAS CHOSEN [employer] AND SIGNED THE [place] FORM. PATIENT ALSO WANTS A SHOWER CHAIR AT DISCHARGE. PATIENT ALREADY HAS OXYGEN, AND NEBULIZER AT HOME (SUPPLIED BY [employer] IN [place]). CM WILL CONTINUE TO FOLLOW PATIENT WITH D/C NEEDS AND PLANS.
--- NOTE | 2016-05-14 08:20 | NUR ---
CALLED INTO PTS ROOM DUE TO IV BLEEDING. TOOK DRESSING OFF AT THIS TIME AND CLEANED SITE. FLUSHED IV WITH 10CC OF NS. IV PATENT. DRESSED IV WITH OP-SITE AND TAPE. IV FLUIDS RESTARTED AT THIS TIME. BED IN LOW POSITION AND CALL LIGHT WITHIN REACH. WILL CONTINUE TO MONITOR.
--- NOTE | 2016-05-14 09:45 | NUR ---
PATIENT SITTING UP IN CHAIR AT BEDSIDE ALERT. RESPIRATIONS EVEN AND UNLABORED. GUEST AND [facility] CLAY MINER AT BEDSIDE. CALL LIGHT IN REACH. DENIES NEEDS.
--- NOTE | 2016-05-14 10:30 | NUR ---
PT UP AMBULATING IN HALLWAY AT THIS TIME WITH PHYSICAL THERAPY. WILL CONTINUE TO MONTIOR.
[2016-05-14 11:20] VITALS: BP 158/79
--- NOTE | 2016-05-14 11:30 | NUR ---
NG TUBE REMOVED AT THIS TIME PER DOCTORS ORDERS. PT TOLERATED WELL. PT RESTING COMFORTABLY IN BED WITH NO COMPLAINTS OF PAIN OR DISCOMFORT AT THIS TIME. BED IN LOW POSITION AND CALL LIGHT WITHIN REACH. WILL CONTINUE TO MONITOR.
--- NOTE | 2016-05-14 14:20 | NUR ---
WAS CALLED INTO ROOM BY PT AT THIS TIME BECAUSE PT WAS WORRIED ABOUT COLOR OF STOOL. STOOL APPEARED TO HAVE A SCANT AMOUNT OF BLOOD. INSTRUCTED PT THAT WE WOULD INFORM DOCTOR. PAGE PLACED TO AT THIS TIME. WILL CONTINUE TO MONITOR.
[2016-05-14 16:02] VITALS: BP 159/80
--- NOTE | 2016-05-14 17:03 | NUR ---
SPOKE WITH DR. COTTO AT THIS TIME. RECIEVED AN ORDER TO HOLD LOVENOX AND MONITOR PT INR LAB VALUES DAILY. INFORMED HIM ABOUT PT STOOL, [facility] PT RESTING IN CHAIR WITH NO COMPLAINTS. WILL CONTINUE TO MONITOR.
--- NOTE | 2016-05-14 17:57 | NUR ---
OT NOTE: PT COMPLETED DYNAMIC SITTING BALANCE AT EOB FOR INCREASED I WITH ADLS. PT COMPLETED BUE AROM EXS IN ALL PLANES OF MOTION. THANK YOU, AURELIO UPTON/Dann
--- NOTE | 2016-05-14 19:30 | NUR ---
PT SITTING UP ON BSC, ASSESSMENT COMPLETED, NO ACUTE DISTRESS NOTED, SPOUSE AT BEDSIDE, DENIES NEEDS, CL IN REACH, WILL MONITOR
--- NOTE | 2016-05-14 20:57 | NUR ---
MEDS GIVEN PER MAR, YUNIER WELL, REFUSED MOM, ELEVATED FEET, SPOUSE IN ROOM, DENIES NEEDS, SR'S UP X2, CL IN REACH
[2016-05-14 21:00] VITALS: BP 156/76
--- NOTE | 2016-05-14 23:49 | NUR ---
RESTING WITH EYES CLOSED, RESP WITH EASE, NO ACUTE DISTRESS NOTED, SPOUSE RESTING IN CHAIR AT BEDSIDE, CL IN REACH
[2016-05-15 05:00] VITALS: BP 168/88
[2016-05-15 06:07] LABS: APTT 34.3 SECONDS (22.8-39.4); INR 4.05 (0.85-1.17); PROTIME 39.9 SECONDS (11.6-15.0)
[2016-05-15 06:11] LABS: ANION GAP 8.8 mmol/L (8-16); CALCIUM 8.7 mg/dL (8.5-10.1); CARBON DIOXIDE 32.4 mmol/L (21.0-32.0); MAGNESIUM - SERUM 2.5 mg/dL (1.8-2.4); POTASSIUM - SERUM 4.2 mmol/L (3.5-5.1)
[2016-05-15 06:28] LABS: BASOPHILS 0 % (0.0-2.0); EOSINOPHILS 0 % (0-7); HEMATOCRIT 29.3 % (36.0-48.0); HEMOGLOBIN 8.9 g/dL (12-16); IMMATURE GRANULOCYTES 0.9 % (0-5); LYMPHOCYTES 5.1 % (15-50); MCH 27.1 pg (26.0-34.0); MCHC 30.4 g/dL (31.0-37.0); MCV 89.3 fL (80.0-100.0); MEAN PLATELET VOLUME 8.5 fL (7.4-10.4); MONOCYTES 7.2 % (2-11); NEUTROPHILS 86.8 % (40-80); PLATELET COUNT 334 10x3/uL (130-400); RBC 3.28 10x6/uL (4.00-5.40); WBC 20.4 10x3/uL (4.8-10.8)
--- NOTE | 2016-05-15 07:37 | NUR ---
PT UP IN CHAIR, VOICES COMPLAINTS OF IV AND REFUSES GETTING STUCK AGAIN, SHE STATES SHE'S READY TO GO HOME AND IS WAITING FOR HER DR TO COME IN AND SEND HER HOME.
[2016-05-15 07:44] VITALS: BP 118/91
--- NOTE | 2016-05-15 09:05 | NUR ---
PT ASSESSMENT COMPLETE, DENIES PAIN, UP TO CHAIR, ALERT AND ORIENTED, BED IN LOWEST POSITION, AT BEDSIDE, NO SIGNS OF DISTRESS NOTED, IV CHANGED AT L FOREARM 22G, SIDE RAILS UP X2, MEDS GIVEN PER MAR, CALL LIGHT IN REACH.
--- NOTE | 2016-05-15 09:24 | NUR ---
AMBULATED 450FT WITH PHYSICAL THERAPY STANDBY ASSIST AND WALKER. WILL CONTINUE WITH PLAN OF CARE.
--- NOTE | 2016-05-15 11:43 | NUR ---
SCHEDULED IV MEDICATIONS ADMINSITERED AT THIS TIME. 22G IV RESITED TO PT'S LEFT FOREARM X1 ATTEMPT. IV TO RIGHT FOREARM D/C WITH CATH TIP INTACT. REMAINS UP IN CHAIR. CALL LIGHT IN REACH. DENIES NAUSEA OF VOMITING. WILL CONTINUE WITH PLAN OF CARE.
[2016-05-15 12:08] VITALS: BP 177/86
--- NOTE | 2016-05-15 13:00 | NUR ---
OFF FLOOR TO XRAY
[2016-05-15 15:49] VITALS: BP 164/91
[2016-05-15] MEDS ORDERED: LEVAQUIN500 MG PO (15:49)
[2016-05-15] MEDS ORDERED: HYDROCODON-ACE1 EAC7 PO (15:49)
--- NOTE | 2016-05-15 16:06 | NUR ---
CM REASSESSMENT NOTE: PATIENT IS DISCHARGING HOME TODAY WITH [facility]. SPOUSE WILL DRIVE PATIENT HOME AND HE HAS THE PORTABLE OXYGEN READY FOR PATIENT.
[2016-05-15] MEDS ORDERED: STERAPRED 5MG 65 M1 PO (16:07)
--- NOTE | 2016-05-15 16:10 | NUR ---
CALLED IN PERSCRIPTION FOR PREDNISONE TO [facility] SPOKE WITH JANEL PHARMACIST.
--- NOTE | 2016-05-15 17:24 | NUR ---
IV TO L FOREARM DC'D CATH INTACT, DISCHARGE PAPERWORK GO OVER NO QUESTIONS OR CONCERNS, DISCHARGED HOME WITH PER PRIVATE VEHICLE, PT TAKEN TO VEHICLE PER WHEELCHAIR
--- NOTE | 2016-05-16 08:21 | DS ---
PATIENT:IVÁN NEWMAN :44 MEDICAL RECORD: [id number] DISCHARGE SUMMARY ADMISSION DATE: 05/05/16 DISCHARGE DATE: 05/15/16 DATE OF ADMISSION: 05/05/2016 DATE OF DISCHARGE: 05/15/2016 ADMITTING PHYSICIAN: Lorenzo Cotto MD. DISCHARGING PHYSICIAN: Lorenzo Cotto MD. ADMITTING DIAGNOSIS: Cecal neoplasm. DISCHARGE DIAGNOSIS: Status post laparoscopic right hemicolectomy for cecal neoplasm. HOSPITAL COURSE: The patient was admitted to the hospital for an elective laparoscopic right hemicolectomy for an unresectable cecal neoplasm. The patient tolerated the procedure well. Postoperatively, she was transferred to the floor in stable condition. Her postoperative course was complicated by respiratory insufficiency and shortness of breath. Pulmonology was consulted to treat the patient with corticosteroids and IV antibiotics. The patient was seen and evaluated daily by physical therapy. Her diet was slowly advanced. At the time of discharge, the patient was tolerating a regular diet. Her pain was well controlled on oral pain medicine. She was walking 300 feet with physical therapy. She was back to her baseline supplemental home O2. She had return of normal bowel function. DISCHARGE INSTRUCTIONS: Follow up with Dr. Cotto in 7-10 days. DISCHARGE DIET: As tolerated, no restrictions. DISCHARGE ACTIVITY: As tolerated, no restrictions. WOUND CARE: The patient may shower, soap and water to the wound daily. DISCHARGE MEDICATIONS: Please see electronic medical record for a full list of discharge medications. TRANSINT:[id number] Voice Confirmation ID: [id number] DOCUMENT ID: [id number] LORENZO COTTO MD at 0821 CC: [id number] DICTATION DATE: 05/15/16 1753 SHRINK PIT SUPERVISOR: 05/16/16 0311 DIS IN 05/15/16 [facility] [address] [id number]
== END 2016-05-15 17:15 | disposition home health service (06) | DRG 330 ==
LOC: D.SDCHOLD 07:30 → D.MS 07:30 → D.SDCHOLD 09:45 → D.MS 14:39
PROVIDERS: Anesthesiology; Internal Medicine Pulmonary Disease; Surgery; ADMIT Surgery
PROC: 0TB04ZZ Excision of Right Kidney, Percutaneous Endoscopic Approach (ICD-10-PCS; 2016-05-05)
PROC: 0DTF4ZZ Resection of Right Large Intestine, Percutaneous Endoscopic Approach (ICD-10-PCS; principal; 2016-05-05 09:45)
DX: D12.6 Benign neoplasm of colon, unspecified (principal); D62 Acute posthemorrhagic anemia; Z68.41 Body mass index [BMI] 40.0-44.9, adult; E87.1 Hypo-osmolality and hyponatremia; I13.0 Hypertensive heart and chronic kidney disease with heart failure and stage 1 through stage 4 chronic kidney disease, or unspecified chronic kidney disease; N17.9 Acute kidney failure, unspecified; J98.11 Atelectasis; I50.22 Chronic systolic (congestive) heart failure; N28.1 Cyst of kidney, acquired; E66.01 Morbid (severe) obesity due to excess calories; Z99.81 Dependence on supplemental oxygen; E87.5 Hyperkalemia; E83.42 Hypomagnesemia; J44.9 Chronic obstructive pulmonary disease, unspecified; J45.909 Unspecified asthma, uncomplicated; N18.9 Chronic kidney disease, unspecified; K21.9 Gastro-esophageal reflux disease without esophagitis; I48.91 Unspecified atrial fibrillation

== ENCOUNTER 2016-05-27 18:16 | Inpatient (IN) | payer MEDICARE ==
[~2016-05-27] VITALS: Ht 165.1 cm; Wt 104.3 kg
[~2016-05-27 18:16] MED LIST changes: +LEVAQUIN500 MG PO; +STERAPRED 5MG 65 M1 PO
--- NOTE | 2016-05-27 18:27 | NUR ---
PATIENT TO ROOM AT THIS TIME. ASSISTED TO BR BY SHAKER REPAIRER. NO COMPLAINTS OR SIGNS OF DISTRESS. CALL LIGHT WITHIN REACH. WILL CALL FOR ASSIST WHEN FINISHED.
[2016-05-27 19:29] VITALS: BP 138/59; BMI 38.3
--- NOTE | 2016-05-27 19:45 | NUR ---
PATIENT RESTING IN BED. ALERT AND ORIENTED. NO SIGNS OF DISTRESS NOTED. IV STARTED TO RIGHT AC. TOLERATED WITHOUT COMPLAINTS. DENIES ANY NEEDS AT THIS TIME. BED LOW CALL LIGHT IN REACH. AT BEDSIDE.
[2016-05-27 20:23] LABS: BASOPHILS 0.1 % (0.0-2.0); EOSINOPHILS 0.3 % (0-7); HEMATOCRIT 27.5 % (36.0-48.0); HEMOGLOBIN 8.4 g/dL (12-16); IMMATURE GRANULOCYTES 0.8 % (0-5); LYMPHOCYTES 10.7 % (15-50); MCH 27.2 pg (26.0-34.0); MCHC 30.5 g/dL (31.0-37.0); NEUTROPHILS 82.1 % (40-80); PLATELET COUNT 285 10x3/uL (130-400); RBC 3.09 10x6/uL (4.00-5.40); RDW 18.5 % (11.5-14.5); WBC 15.6 10x3/uL (4.8-10.8)
[2016-05-27 20:47] LABS: ALBUMIN 2.2 g/dL (3.4-5.0); ANION GAP 7.1 mmol/L (8-16); BILIRUBIN - TOTAL 0.5 mg/dL (0.2-1.3); CALCIUM 7.9 mg/dL (8.5-10.1); CARBON DIOXIDE 39.7 mmol/L (21.0-32.0); PROTEIN - SERUM 5.4 g/dL (6.4-8.2)
[2016-05-27 20:55] LABS: POTASSIUM - SERUM 1.8 mmol/L (3.5-5.1)
[2016-05-27 21:00] VITALS: BP 129/45
[2016-05-28] VITALS (18 sets, daily range): BP systolic 116–167; BP diastolic 57–79; Ht 165.1 cm; Wt 104.3 kg
[2016-05-28 04:38] LABS: MAGNESIUM - SERUM 1.4 mg/dL (1.8-2.4)
[2016-05-28 04:45] LABS: POTASSIUM - SERUM 2.9 mmol/L (3.5-5.1)
--- NOTE | 2016-05-28 07:20 | NUR ---
PATIENT RECEIVED UP IN RESTROOM. PRBC TRANSFUSING WIHTOUT DIFFICULTY. PRESENT. DENIES NEEDS.
--- NOTE | 2016-05-28 08:04 | NUR ---
PATIENT SITTING UP ON SIDE OF BED ALERT. RESPIRATIONS EVEN AND UNLABORED. PRBC TRANSFUSING TO RIGHT AC IV WITHOUT DIFFICUTLY. VITAL SIGNS STABLE. DENIES NEEDS. BED IN LOW POSITION. CALL LIGHT IN REACH.
--- NOTE | 2016-05-28 10:00 | NUR ---
PRBC COMPLETE. TOLERATED WELL. VITAL SIGNS STABLE. DENIES NEEDS. SIDE RAILS UP X2. BED IN LOW POSITION. CALL LIGHT IN REACH.
[2016-05-28 11:13] LABS: APPEARANCE HAZY (CLEAR); BILIRUBIN NEGATIVE (NEGATIVE); COLOR STRAW (YELLOW); GLUCOSE NEGATIVE (NEGATIVE); KETONE NEGATIVE (NEGATIVE); LEUKOCYTE ESTERASE NEGATIVE (NEGATIVE); NITRITE NEGATIVE (NEGATIVE); PH 7.5 (5.0-6.0); PROTEIN NEGATIVE (NEGATIVE); SPECIFIC GRAVITY 1.005 (1.005-1.020); UROBILINOGEN NORMAL (NORMAL)
[2016-05-28 13:10] LABS: BASOPHILS 0.2 % (0.0-2.0); EOSINOPHILS 0.8 % (0-7); IMMATURE GRANULOCYTES 0.5 % (0-5); LYMPHOCYTES 16.9 % (15-50); MCH 27.3 pg (26.0-34.0); MCHC 31.2 g/dL (31.0-37.0); MCV 87.7 fL (80.0-100.0); MEAN PLATELET VOLUME 8.6 fL (7.4-10.4); MONOCYTES 6.6 % (2-11); PLATELET COUNT 263 10x3/uL (130-400); RDW 17.9 % (11.5-14.5)
[2016-05-28 13:22] LABS: HEMATOCRIT 35.6 % (36.0-48.0); HEMOGLOBIN 11.1 g/dL (12-16); RBC 4.06 10x6/uL (4.00-5.40)
[2016-05-28 13:27] LABS: CALCIUM 8.6 mg/dL (8.5-10.1); CREATININE - SERUM 0.9 mg/dL (0.6-1.3); MAGNESIUM - SERUM 1.4 mg/dL (1.8-2.4)
[2016-05-28 13:28] LABS: INR 2.21 (0.85-1.17); PROTIME 24.6 SECONDS (11.6-15.0)
--- NOTE | 2016-05-28 14:45 | NUR ---
PATIENT IN MID [place] POSITION RESTING WITH EYES CLOSED. RESPIRATIONS EVEN AND UNLABORED. WAKES EASY. SCHEDULED MEDICATION ADMINISTERED. SIDE RAILS UP X2. BED IN LOW POSITION. CALL LIGHT IN REACH.
--- NOTE | 2016-05-28 17:30 | NUR ---
SITTING UP ON SIDE OF BED EATING DINNER. TOLERATING WELL. DENIES NEEDS. PRESENT. CALL LIGHT IN REACH. BED IN LOW POSITION. SIDE RAILS UP X2.
--- NOTE | 2016-05-28 21:20 | NUR ---
AWAKE,ALERT,NO COMPLIANTS. CL IN REACH. AT BEDSIDE.
[2016-05-29 00:04] VITALS: BP 123/70
--- NOTE | 2016-05-29 01:23 | NUR ---
EYES CLOSED. RESP EVEN. NO DISTRESS NOTED. CL INREACH
--- NOTE | 2016-05-29 03:27 | NUR ---
PT IS ASLEEP WITH EASY RESPIRATIONS AND NO DISTRESS NOTED. AT THE BEDSIDE AWAKE RESTING IN CHAIR. THE BED IS LOW, RAILS UP X'S 2 WITH THE CALL LIGHT AT HAND. LIGHTS DIM AND TV ON.
[2016-05-29 03:59] VITALS: BP 129/67
--- NOTE | 2016-05-29 05:10 | NUR ---
AWAKE WITH NO COMPLAINTS. CL IN REACH. REMAINS AT BEDSIDE.
[2016-05-29 05:53] LABS: BASOPHILS 0.2 % (0.0-2.0); EOSINOPHILS 1.3 % (0-7); HEMATOCRIT 32.9 % (36.0-48.0); HEMOGLOBIN 10.2 g/dL (12-16); IMMATURE GRANULOCYTES 0.8 % (0-5); LYMPHOCYTES 21.8 % (15-50); MCH 26.9 pg (26.0-34.0); MCV 86.8 fL (80.0-100.0); MEAN PLATELET VOLUME 9.4 fL (7.4-10.4); MONOCYTES 8.9 % (2-11); PLATELET COUNT 243 10x3/uL (130-400); RBC 3.79 10x6/uL (4.00-5.40); RDW 18.1 % (11.5-14.5); WBC 10.4 10x3/uL (4.8-10.8)
[2016-05-29 06:29] LABS: ALBUMIN 2.1 g/dL (3.4-5.0); BILIRUBIN - TOTAL 0.6 mg/dL (0.2-1.3); CALCIUM 8.5 mg/dL (8.5-10.1); CARBON DIOXIDE 35.6 mmol/L (21.0-32.0); CREATININE - SERUM 0.9 mg/dL (0.6-1.3); MAGNESIUM - SERUM 1.4 mg/dL (1.8-2.4); PROTEIN - SERUM 5.9 g/dL (6.4-8.2); THYROID STIMULATING HORMONE 4.26 uIU/mL (0.36-3.74)
[2016-05-29 06:37] LABS: ANION GAP 8.7 mmol/L (8-16); POTASSIUM - SERUM 4.3 mmol/L (3.5-5.1)
[2016-05-29 07:56] LABS: INR 2.3 (0.85-1.17); PROTIME 25.4 SECONDS (11.6-15.0)
[2016-05-29 08:34] VITALS: BP 144/81
[2016-05-29] MEDS ORDERED: COUMADIN1 MG PO (11:39)
--- NOTE | 2016-05-29 11:39 | NUR ---
05/29/2016 11:36 DCP: Discharge Planning Patient Name: IVÁN NEWMAN Admission Status: Elective Accout number: [id number] Admission Date: 05-27-2016 : 1940 Admission Diagnosis:ANEMIA, UNSPECIFIED Attending: SAMARA Current LOS: 2 Anticipated DC Date: 05-29-2016 Planned Disposition: Inpatient Rehab Primary Insurance: [employer] [facility] Discharge Planning Comments: Patient recently discharged from hospital following surgery. She is current with [facility]. She lives at home with her and plans to return home with him & resume home health services with [facility]. Discussed rehab options - she is agreeable to inpatient therapy. Screen has been ordered & completed. Patient has been accepted and will transfer this afternoon. Answered questions & concerns. CM will follow. [employer]: Krystal Stephens
[2016-05-29] MEDS ORDERED: BUMEX 1 MG/1 MG/4 ML IV (11:40)
[2016-05-29] MEDS ORDERED: IPRAT-ALBUT 0.5-3 ML UPD (11:40)
--- NOTE | 2016-05-29 11:40 | NUR ---
Rehab Prescreening Consult recieved and the patient was visited. She meets criteria and agrees to participate in the required therapy. She has [employer]. Called [phone] and spoke to Kendal Salcedo Her plan has been active since 04/06/2013. She has inpatient rehab benefits and does not require a preauthorization. Ref# [id number] Cinthia Palomo RN Clinical Liaison, Rehab
[2016-05-29] MEDS ORDERED: FLUTICASONE PRO16 GM NASAL (11:41)
[2016-05-29] MEDS ORDERED: ADVAIR HFA [SP]12 GM INH (11:41)
[2016-05-29] MEDS ORDERED: PROTONIX40 MG PO (11:41)
[2016-05-29 12:21] VITALS: BP 152/87
--- NOTE | 2016-05-29 15:18 | NUR ---
RECEIVED PATIENT LAYING IN THE BED. ALERT AND ORIENTED. DENIES PAIN. FAMILY AT BEDSIDE. SHORT OF BREATH AT REST WITH O2 AT 1L/MIN PER NC. REDNESS NOTED TO OLD SURGERY SITE ON LOWER ABDOMEN AND GROIN AREA.SALINE LOCK TO RIGHT AC PATENT AND INTACT. DENIES PAIN. CALL LIGHT WITHIN REACH AND BED IN LOW POSITION.
--- NOTE | 2016-05-29 19:33 | HP ---
PATIENT: IVÁN NEWMAN MEDICAL RECORD: [id number] ACCOUNT: [id number] LOCATION:[id number] : [birth year] ADMISSION DATE: 05/27/16 HISTORY AND PHYSICAL EXAMINATION HISTORY OF PRESENT ILLNESS: Ms. Newman is a 75-year-old white female, who comes in today with lower extremity edema and shortness of breath. She saw Dr. Mills earlier today in a postop followup and he referred her here for further evaluation. On exam, she is noted to be pale and a hemoglobin is checked and it is 8.1. She recently underwent a laparoscopic right hemicolectomy for a large cecal lesion, which proved to be negative. She has got pitting to her knees and shortness of breath with orthopnea. She is in failure and is severely anemic. She is going to require transfusion. She is going to be admitted for transfusion and diuresis. We will also check an echo. PAST MEDICAL HISTORY: Significant for chronic lung problems with chronic bronchitis, diffuse DJD, hypertension, hyperlipidemia, GERD, COPD, depression and chronic atrial fibrillation, and previous CVA. Dr. Bae is her railroad car loader. She does have advanced directive signed 12/13/2015. PAST SURGICAL HISTORY: Previous surgeries include a hysterectomy with removal of one ovary, D&C, pacemaker placement, septal defect repair at age 27, and left knee surgery secondary to trauma. ALLERGIES OR INTOLERANCES: INCLUDE MECLIZINE. HOME MEDICATIONS: She was recently started on some Diflucan and nystatin for yeast infection. Warfarin 1 mg daily. Her INR here in the office today was 2.4. Furosemide 20 mg a day p.r.n., diltiazem 120 q. daily, citalopram 20 mg a day, pravastatin 40 mg at h.s., fluticasone, Symbicort 160 b.i.d., albuterol HFA 2 puffs q.i.d. p.r.n. She has taken metaxalone in the past, but is currently not on any right now, Singulair 10 mg a day, Mucinex, chronic O2 at 2 liters per minute, albuterol updrafts and Rythmol 150 twice a day. FAMILY HISTORY: Noncontributory and unknown. SOCIAL HISTORY: The patient is . Her is with her today. She has been a smoker in the past, but quit in 1996. She does not drink. REVIEW OF SYSTEMS: She denies any fever. She denies any chest pain. She does complain of shortness of breath and orthopnea. She has got marked edema. She has been weak. She had a chronic cough. Denies any blood per rectum or other signs of gross blood loss. PHYSICAL ECXAMINATION: VITAL SIGNS: Height 5 feet, 5.5, weight 230, and BMI of 37.7. Temperature 97.8, BP 122/56, pulse is 86, respirations 20, and O2 is 92% on 2 liters. GENERAL: Pale in appearance. No distress, but obviously does not feel well. HEENT: Sclerae nonicteric. Mucous membranes are okay. HEART: Regular. LUNGS: With bilateral rhonchi, which is chronic for her. ABDOMEN: Soft. EXTREMITIES: Lower extremities reveal a pitting to the knee. She is in a wheelchair. HISTORY AND PHYSICAL [id number] IVÁN NEWMAN IMPRESSION: 1. Severe anemia. 2. Status post recent right hemicolectomy secondary to benign cecal mass. 3. Edema, suspect congestive heart failure. 4. Chronic, chronic obstructive pulmonary disease. 5. Chronic atrial fibrillation, on anticoagulants. 6. Gastroesophageal reflux disease. 7. History of previous cerebrovascular accident. 8. Obesity. PLAN: Admit, transfuse 2 units, IV diuretics, check an echo, daily weights. Follow electrolytes and renal function. Discussed with Dr. Mills and he will just check in on the patient, nothing surgical going on right now. Consider cardiology consult, pending results of echo and how she does. TRANSINT:[id number] Voice Confirmation ID: [id number] DOCUMENT ID: [id number] RENAY MELENDEZ DO at 1933 CC: [id number] DICTATION DATE: 05/27/161733 GAMEPLAY PROGRAMMER: 05/27/162033 ADM IN [id number] [place] [address]
--- NOTE | 2016-05-29 20:50 | NUR ---
DISCHARGED TO REHAB. PERSONAL BELONGINGS SENT WITH PATIENT.
--- NOTE | 2016-06-24 08:17 | EC ---
PATIENT:IVÁN NEWMAN DATE OF SERVICE: 05/27/16 SEX: F MEDICAL RECORD: [id number] DATE OF : 44 LOCATION:[facility] AGE OF PATIENT: 75 ADMISSION DATE: 05/27/16 REFERRING PHYSICIAN: INTERPRETING PHYSICIAN: VIVIEN BAE M.D. ECHOCARDIOGRAM REPORT ECHO CHARGES 4 ECHO COMPLETE CLINICAL DIAGNOSIS: CHF ECHOCARDIOGRAPHIC MEASUREMENTS (adult normal given) AC root (d.<3.7cm) 2.7 LV Septum d (<1.2 cm> 1.0 Valve Excursion 1.6 LV Septum (systole) 1.8 Left Atria (s.<4.0cm> 4.7 LVPW d(<1.2cm) 1.1 RV (d.<2.3cm) 3.6 LVPW (sytole) 1.8 LV diastole(<5.6CM) 5.9 MV E-F(>70mm/sec) LV systole 3.3 LVOT Diameter 1.6 MV exc.(>10mm) Est.ejection fraction (50-75%) Pericardial Effusion N DOPPLER: LVIT A 55.0 E 121 LA RVSP 50.0 LVOT 110 AOP1/2T Asc. Ao 182 RVOT 67.0 RA PA 116 AV Gradient Peak 13.3 AV Mean 6.7 AV Area 1.0 MV Gradient Peak 7.2 MV Mean 2.8 MV Area COMMENTS: Alternative Medicine Practitioner: Krystian SHAIKHOE Folding Machine Feeder:Brooklynn Bae TAPE# PACS DATE OF SERVICE: 05/28/2016 REFERRING PHYSICIAN: Steve Dumont MD INDICATION: Congestive heart failure. DESCRIPTION: Left ventricle is mildly dilated. There is mild to moderate LV dysfunction noted. His ejection fraction is in the order of 40%. Mitral valve is structurally normal. There is mild regurgitation noted. Left atrium is moderately dilated. The aortic valve is trileaflet. Leaflets are thickened. ECHOCARDIOGRAM REPORT [id number] IVÁN NEWMAN There is no evidence of stenosis. There is mild insufficiency appreciated. Right ventricle is mildly dilated. Tricuspid valve is structurally normal. There is moderate regurgitation seen. Right ventricular systolic pressure is elevated at 50 mmHg. There is no pericardial effusion noted. IMPRESSION: 1. Mildly dilated left ventricle with mild left ventricular dysfunction with ejection fraction of 40%. 2. Moderate mitral regurgitation. 3. Moderate tricuspid regurgitation with elevated pulmonary pressures. TRANSINT:[id number] Voice Confirmation ID: [id number] DOCUMENT ID: [id number] VIVIEN BAE M.D. at 0817 CC: [id number] DICTATION DATE: 05/29/16 0802 LEATHER BELT SHAPER: 05/29/16 0940 DIS IN 05/29/16 [place] [id number] [place] [id number]
== END 2016-05-29 22:50 | DRG 811 ==
LOC: D.MS 18:16
PROVIDERS: ADMIT Family Medicine
DX: D64.9 Anemia, unspecified (principal); I50.43 Acute on chronic combined systolic (congestive) and diastolic (congestive) heart failure; I11.0 Hypertensive heart disease with heart failure; J44.9 Chronic obstructive pulmonary disease, unspecified; I48.2 Chronic atrial fibrillation; E66.9 Obesity, unspecified; Z68.37 Body mass index [BMI] 37.0-37.9, adult; M19.90 Unspecified osteoarthritis, unspecified site; E78.5 Hyperlipidemia, unspecified; Z95.0 Presence of cardiac pacemaker; Z86.73 Personal history of transient ischemic attack (TIA), and cerebral infarction without residual deficits; Z87.891 Personal history of nicotine dependence

== ENCOUNTER 2016-05-29 21:10 | Inpatient (IN) | payer MEDICARE ==
[~2016-05-29] VITALS: Ht 165.1 cm; Wt 104.5 kg
[~2016-05-29 21:10] MED LIST changes: +ADVAIR HFA [SP]12 GM INH; +BUMEX 1 MG/1 MG/4 ML IV; +COUMADIN1 MG PO; +FLUTICASONE PRO16 GM NASAL; +IPRAT-ALBUT 0.5-3 ML UPD; +PROTONIX40 MG PO
--- NOTE | 2016-05-29 21:15 | NUR ---
PT RECIEVED TO UNIT VIA WC PROPELLED BY A JOSS HOUSE KEEPER. WITH PT. ADMITTED TO ROOM 1118B TO DR AVILA SERVICES. PT IS ALERT AND ORIENTED X 3. DENIES ACUTE DISCOMFORT AT THIS TIME. STATES: " IM JUST SO WEAK, AND I NEED A LOT OF HELP GETTING AROUND RIGHT NOW." PT ORIENTED TO ROOM AND UNIT RULES WITH VERBAL UNDERSTANDING VOICED. SR'S ARE UP X 3 IN BED. CALL LIGHT AND BEDSIDE TABLE ARE WITHIN EASY REACH.
--- NOTE | 2016-05-29 23:32 | NUR ---
PT IS RESTING QUIETLY IN BED WITH EYES CLOSED. RESPS ARE EVEN AND UNLABORED. NO ACUTE DISTRESS NOTED.
[2016-05-30 00:16] VITALS: BP 117/67; Ht 165.1 cm; Wt 104.5 kg
[2016-05-30 00:17] VITALS: BP 117/67
--- NOTE | 2016-05-30 03:08 | NUR ---
PT RESTING IN BED WITH EYES CLOSED. NO DISTRESS NOTED.
--- NOTE | 2016-05-30 03:45 | NUR ---
PT RESTING, EYES CLOSED. BED LOW. CL IN REACH.
--- NOTE | 2016-05-30 05:43 | NUR ---
PT RESTING IN BED WITH EYES CLOSED. AWOKE EASILY FOR AM MED. NO FURTHER NEEDS VOICED.
[2016-05-30 07:30] LABS: BASOPHILS 0.3 % (0.0-2.0); EOSINOPHILS 1.3 % (0-7); HEMATOCRIT 31.3 % (36.0-48.0); HEMOGLOBIN 9.6 g/dL (12-16); IMMATURE GRANULOCYTES 0.8 % (0-5); LYMPHOCYTES 22.4 % (15-50); MCH 27.1 pg (26.0-34.0); MCHC 30.7 g/dL (31.0-37.0); MCV 88.4 fL (80.0-100.0); MEAN PLATELET VOLUME 9.1 fL (7.4-10.4); MONOCYTES 9.6 % (2-11); NEUTROPHILS 65.6 % (40-80); PLATELET COUNT 277 10x3/uL (130-400); RBC 3.54 10x6/uL (4.00-5.40); RDW 18.1 % (11.5-14.5); WBC 10.8 10x3/uL (4.8-10.8)
[2016-05-30 07:46] LABS: CALCIUM 8.4 mg/dL (8.5-10.1); CARBON DIOXIDE 38.1 mmol/L (21.0-32.0); CREATININE - SERUM 0.9 mg/dL (0.6-1.3)
[2016-05-30 07:47] LABS: POTASSIUM - SERUM 3.1 mmol/L (3.5-5.1)
[2016-05-30 08:18] LABS: INR 2.25 (0.85-1.17); PROTIME 24.9 SECONDS (11.6-15.0)
[2016-05-30 08:26] VITALS: BP 123/77
[2016-05-30 19:30] VITALS: BP 121/64
--- NOTE | 2016-05-30 19:35 | NUR ---
PT IN BED VISITING WITH FAMILY. NO CONCERNS OR COMPLAINTS MADE KNOWN. CALL LIGHT IN REACH.
--- NOTE | 2016-05-31 01:45 | NUR ---
PT IN BED WITH EYES CLOSED AND CHEST RISING. RESPIRATIONS EVEN AND UNLABORED. NO SIGN/SYMPTOMS OF DISTRESS NOTED. CALL LIGHT IN REACH.
[2016-05-31 07:00] VITALS: BP 94/60
--- NOTE | 2016-05-31 07:02 | NUR ---
PT IN BED WITH EYES CLOSED AND CHEST RISING. EASILY AROUSED UPON ENTRY. NO CONCERN NOTED AT THIS TIME. CALL LIGHT IN REACH.
--- NOTE | 2016-05-31 08:00 | NUR ---
SHIFT ASSMT COMPLETED.INCISIONE TO ABD SCABBED AND VERY RED.SITTING UP IN CHAIR DENIES NEED FOR PAIN RELIEF OR MED.CL IN REACH.EATING BREAKFAST.
--- NOTE | 2016-05-31 12:00 | NUR ---
EATING LUNCH,DENIES NEEDS.
--- NOTE | 2016-05-31 16:00 | NUR ---
VISITING WITH FAMILY.CL IN REACH.
--- NOTE | 2016-05-31 19:50 | NUR ---
PT IN BED WATCHING TV. NO CONCERNS OR NEEDS MADE KNOWN AT THIS TIME. CALL LIGHT IN REACH.
[2016-05-31 22:42] VITALS: BP 132/57
--- NOTE | 2016-05-31 23:09 | NUR ---
PT IN BED WITH EYES CLOSED AND CHEST RISING. NO SIGN/SYMPTOMS OF DISTRESS NOTED. CALL LIGHT IN REACH. WILL CONTINUE TO OBSERVE.
--- NOTE | 2016-06-01 03:08 | NUR ---
PT IN BED WITH EYES CLOSED AND CHEST RISING. NO SIGN/SYMPTOMS OF DISTRESS NOTED AT THIS TIME. CALL LIGHT IN REACH. WILL CONTINUE TO OBSERVE.
--- NOTE | 2016-06-01 06:26 | NUR ---
PT IN BED WITH EYES CLSOED AT THIS TIME. MEDICATIONS GIVEN PER JUN. PT UP TO BATHROOM FOR URINATION. NO CONCERNS NOTED AT THIS TIME. CALL LIGHT IN REACH.
[2016-06-01 08:00] VITALS: BP 128/67
--- NOTE | 2016-06-01 08:00 | NUR ---
SHIFT ASSMT COMPLETED.DENIES NEEDS,ABD STILL VERY RED.LE'S WITH 3+ DEPENDENT EDEMA.
--- NOTE | 2016-06-01 12:00 | NUR ---
SITTING UP ON SIDE OF BED. VISITING.OBSERVED REDNESS TO ABD.
--- NOTE | 2016-06-01 14:00 | NUR ---
ASSISTED UP TO BATHRM USING RW WITH SBA;NOTED LOWER LEGS HAVING SOME REDNESS.ENC TO LIMIT FLD BEAUSE STATES SHE HAS CHF.ENC TO KEEP LEGS ELAVATED.
--- NOTE | 2016-06-01 16:00 | NUR ---
VISITING WITH FAMILY.CL IN REACH.
--- NOTE | 2016-06-01 17:00 | NUR ---
IV RAC DC'D WITH CATH TIP INTACT.
--- NOTE | 2016-06-01 23:04 | NUR ---
PT RECEIVED SITTING ON SIDE OF BED WORK ON CROSSWORD PUZZLES. ASSISTANCE GIVEN TO STAND AND SHE WALKED USING WALKER TO BATHROOM. SCHEDULED MEDICATIONS GIVEN PER MAR. NO CONCERNS MADE KNOWN. CALL LIGHT IN REACH.
[2016-06-01 23:26] VITALS: BP 136/59
--- NOTE | 2016-06-02 01:16 | NUR ---
PT IN BED WITH EYES CLOSED AND CHEST RISING. NO SIGN/SYMPTOMS OF DISTRESS NOTED AT THIS TIME. CALL LIGHT IN REACH.
--- NOTE | 2016-06-02 06:32 | NUR ---
PT IN BED WITH EYES OPEN. NO CONCERNS MADE KNOWN. REQUEST TO BAG MENDER LIGHTS AND CLOSE DOOR. CALL LIGHT IN REACH.
[2016-06-02 06:53] LABS: BASOPHILS 0.2 % (0.0-2.0); EOSINOPHILS 1.2 % (0-7); HEMATOCRIT 32.6 % (36.0-48.0); IMMATURE GRANULOCYTES 0.6 % (0-5); MCH 27.8 pg (26.0-34.0); MCHC 30.7 g/dL (31.0-37.0); MCV 90.6 fL (80.0-100.0); MEAN PLATELET VOLUME 8.8 fL (7.4-10.4); MONOCYTES 11.8 % (2-11); NEUTROPHILS 54.2 % (40-80); PLATELET COUNT 324 10x3/uL (130-400); RDW 17.9 % (11.5-14.5); WBC 8.5 10x3/uL (4.8-10.8)
[2016-06-02 07:10] LABS: CALCIUM 8.4 mg/dL (8.5-10.1)
[2016-06-02 07:12] LABS: ANION GAP 6.2 mmol/L (8-16); INR 1.86 (0.85-1.17); POTASSIUM - SERUM 2.7 mmol/L (3.5-5.1); PROTIME 21.4 SECONDS (11.6-15.0)
[2016-06-02 07:13] LABS: CARBON DIOXIDE 41.5 mmol/L (21.0-32.0)
--- NOTE | 2016-06-02 07:26 | RHP ---
PATIENT: IVÁN NEWMAN MEDICAL RECORD: [id number] ACCOUNT: [id number] LOCATION:[id number] : 44 ADMISSION DATE: 05/29/16 REHABILITATION HISTORY AND PHYSICAL EXAMINATION POST ADMISSION PHYSICIAN EXAMINATION Post-Admission Physical Examination and History and Physical DATE OF ADMISSION TO THE REHAB: 05/29/2016 ADMITTING DIAGNOSES: Acute systolic congestive heart failure, chronic atrial fibrillation and severe anemia. HISTORY OF PRESENT ILLNESS: The patient is a 75-year-old female patient admitted with acute systolic heart failure, status post right laparoscopic hemicolectomy on May 05. She comes in on May 27 for surgery, Follow up with Dr. Mills. She complained of lower extremity edema and shortness of breath. She had pitting to her knees and shortness of breath with orthopnea. She has been in failure and severely anemic. She was sent to Dr. Dumont's office for further evaluation and admitted to the hospital. Chest x-ray showed mild right lung base infiltrate/atelectasis. She was anemic with H&H of 8 and 27. She was given 2 units of packed red blood. She was also hypokalemic with potassium of 1.8. She was placed on electrolyte protocol for placement. Her Bumex was increased to 2 mg IV q.12 hours for diuresis. Previously, she was moderate independent with ADLs and mobility using a rolling walker. Currently, she is mod to max assist for ADLs and mobility, would definitely need inpatient rehab to get back to her prior level of function and hopefully return home with her , who lives down in [place]. COMORBIDITIES: Include left ventricular dysfunction with an ejection fraction of 40%, moderate mitral regurg, hypokalemia, hypomagnesemia, orthopnea, dyspnea, chronic bronchitis, hypertension, pacemaker placement, previous CVA, depression, and O2 dependence. PAST MEDICAL HISTORY: Significant for CHF, electrolyte abnormalities, orthopnea, sinus node dysfunction, requiring pacemaker placement. PAST SURGICAL HISTORY: Include hemicolectomy, hysterectomy, D&C, pacemaker placement, septal defect repair and left knee surgery. ALLERGIES: No known drug allergies. CURRENT MEDICATIONS: Include Coumadin 1 mg daily, Rythmol 150 mg b.i.d., Pravachol 40 mg q.h.s., Singulair 10 mg daily, Advair 2 puffs b.i.d., Flonase nasal spray 1 spray b.i.d., diltiazem 120 mg daily, Celexa 20 mg daily, vitamin D 1000 units daily, Bumex 2 mg b.i.d., and DuoNeb updrafts. HABITS: No alcohol or tobacco use. FAMILY HISTORY: Noncontributory. SOCIAL HISTORY: The patient hopes to return back home with her . They live down in the [facility]. REVIEW OF SYSTEMS: HISTORY AND PHYSICAL [id number] IVÁN NEWMAN GENERAL: Does complain of weakness and fatigue. HEENT: Denies cold, cough, or congestion. CARDIOVASCULAR: Denies any chest pain. LUNGS: Does complain of some shortness of breath with activity. PHYSICAL EXAMINATION: VITAL SIGNS: Stable, afebrile. GENERAL: Morbidly obese female, in no acute distress, alert upon exam. HEENT: Normocephalic, atraumatic. Mucosa moist. NECK: Supple. No lymphadenopathy. LUNGS: Clear in [place]. HEART: Irregular rate and rhythm. ABDOMEN: Benign. EXTREMITIES: No clubbing, cyanosis or edema. NEUROLOGIC: Intact. LABORATORY DATA: Her white count is 10.8, H&H of 9.6 and 31.3, and platelet count is 277. INR is 2.25. Sodium 137, potassium 3.1, BUN and creatinine of 13 and 0.9, and blood sugar is noted to be 90. ASSESSMENT: This 75-year-old female patient admitted to rehab with a working diagnosis of congestive heart failure complicated by severe anemia and chronic atrial fibrillation. The patient has potential to make improvement. We instituted the following multiple disciplinary therapies including to, but not limited to physical, occupational, respiratory, speech, nutritional services, prosthetics and orthotics. Given her complex condition and risk for more complications, rehabilitation services cannot be provided at a lower level of care such as a prison facility. PLAN: 1. Admit to [facility] rehab for intensive inpatient therapy to include the following disciplines: A. Physical therapy to improve gait, all transfer skills and bed mobility to a modified independent level. B. Occupational therapy to improve activities of daily living to a modified independent level C. Case management to assist with discharge planning and placement options. D. Nutrition to assist with nutritional needs. E. Rehabilitation nursing to assist in monitoring the patient's underlying medical conditions and to assist with any type of bowel or bladder management. 2. The patient's current medications and medical care will be continued. 3. The patient will be placed on standard fall precautions. 4. Watch her H&H closely and replace this if necessary. 5. We will go ahead and follow her up on Thursday a.m. and will discuss with care team meeting next week. TRANSINT:[id number] Voice Confirmation ID: [id number] DOCUMENT ID: [id number] HISTORY AND PHYSICAL [id number] IVÁN NEWMAN SCOTT MD at 0726 CC: [id number] DICTATION DATE: 05/30/16 0852 ENVIRONMENTAL STUDIES PROFESSOR: 05/30/16 1128 ADM IN [id number] [place] [address]
--- NOTE | 2016-06-02 07:27 | NUR ---
RESTING QUIETLY IN BED CALL LIGHT IN REACH
[2016-06-02 12:11] VITALS: BP 116/73
--- NOTE | 2016-06-02 15:00 | NUR ---
IN BED IN ROOM WATCHING TV CALL LIGHT IN REACH
--- NOTE | 2016-06-02 18:14 | NUR ---
ATE SUPPER SITTING ON SIDE OF BED. DENIES NEEDS. ENCOURAGED HER TO KEEP BLE ELEVATED. CALL LIGHT IN REACH
[2016-06-02 19:00] VITALS: BP 128/65
--- NOTE | 2016-06-02 19:00 | NUR ---
RECEIVED PT IN BED WITH HOB UP FOR COMFORT. PT WAS FEELING NAUSEOUS EARLIER AND LLOYD VILLANUEVA HAD GIVEN HER SOME CRACKERS AND SHE STATED THAT HELPED AND SHE NO LONGER IS NAUSEATED. PT HAS NO COMPLAINTS AT THIS TIME. BED IN LOWEST POSITION AND CALL LIGHT WITHIN REACH.
--- NOTE | 2016-06-02 23:40 | NUR ---
PATIENT DOZING THROUGH ADMISSION ASSESSMENT OF HER ROOMMATE. NO DISTRESS NOTED.
--- NOTE | 2016-06-03 01:30 | NUR ---
PT IN BED WITH HOB AT 30 DEGREES, EYES CLOSED, CHEST RISING AND FALLING, BED IN LOWEST POSTION AND CALL LIGHT WIHTIN REACH.
--- NOTE | 2016-06-03 06:35 | NUR ---
PT IN BED WITH HOB AT 25 DEGREES, EYES CLOSED, CHEST RISING AND FALLING, BED IN LOWEST POSITION AND CALL LIGHT WITHIN REACH.
--- NOTE | 2016-06-03 07:30 | NUR ---
SITTING UP IN BED WATCHING TV CALL LIGHT IN REACH
[2016-06-03 08:19] VITALS: BP 138/74
--- NOTE | 2016-06-03 13:40 | NUR ---
SITTING ON SIDE OF BED TALKING TO ROOM MATE. ATE LUNCH IN ROOM. STILL WEARING OXYGEN. USES WALKER FOR AMBULATION ASST
--- NOTE | 2016-06-03 18:16 | NUR ---
UP WITH MIN ASST TO BATHROOM. USES ROLLING WALKER FOR AMBULATION ASST STILL HAS 4+ EDEMA TO BLE.
[2016-06-03 19:35] VITALS: BP 122/67
--- NOTE | 2016-06-03 19:45 | NUR ---
PT RESTING QUIETLY ON RIGHT SIDE, EYES CLOSED, NO S/S OF ACUTE DISTRESS. RESPIRATIONS REGULAR AND UNLABORED.
--- NOTE | 2016-06-03 23:46 | NUR ---
PT IN BED WITH HOB AT 20 DEGREES, EYES CLOSED, CHEST RISING AND FALLING, BED IN LOWEST POSITION AND CALL LIGHT WITHIN REACH.
--- NOTE | 2016-06-04 05:02 | NUR ---
PT IN BED WITH HOB AT 25 DEGREES, PT LAYING ON RIGHT SIDE, EYES CLOSED, CHEST RISING AND FALLING, BED IN LOWEST POSITION AND CALL LIGHT WITHIN REACH.
[2016-06-04 07:08] LABS: BASOPHILS 0.3 % (0.0-2.0); EOSINOPHILS 1.2 % (0-7); HEMOGLOBIN 10.4 g/dL (12-16); IMMATURE GRANULOCYTES 0.8 % (0-5); LYMPHOCYTES 36.1 % (15-50); MCH 27.3 pg (26.0-34.0); MCHC 29.7 g/dL (31.0-37.0); MCV 91.9 fL (80.0-100.0); MEAN PLATELET VOLUME 8.8 fL (7.4-10.4); NEUTROPHILS 47.6 % (40-80); RBC 3.81 10x6/uL (4.00-5.40); RDW 17.7 % (11.5-14.5); WBC 9.2 10x3/uL (4.8-10.8)
[2016-06-04 07:12] LABS: PLATELET COUNT 417 10x3/uL (130-400)
[2016-06-04 07:41] LABS: INR 2.12 (0.85-1.17); PROTIME 23.8 SECONDS (11.6-15.0)
[2016-06-04 07:51] LABS: CALCIUM 8.9 mg/dL (8.5-10.1); CREATININE - SERUM 1.2 mg/dL (0.6-1.3); POTASSIUM - SERUM 3.7 mmol/L (3.5-5.1)
[2016-06-04 07:53] LABS: ANION GAP 7.7 mmol/L (8-16)
--- NOTE | 2016-06-04 08:00 | NUR ---
SHIFT ASSMT COMPLETED.EATING BREAKFAST.
[2016-06-04 08:19] VITALS: BP 115/69
--- NOTE | 2016-06-04 16:05 | NUR ---
CARE TEAM MEETING: PATIENT TENATIVE DISCHARGE DATE IS 06/06/16. PATIENT PCP IS DR. MELENDEZ. HAS USED [employer] IN PAST. WILL CONTINUE TO FOLLOW WITH PATIENT UNTIL DISCHARGED
[2016-06-04 19:00] VITALS: BP 123/73
--- NOTE | 2016-06-04 19:30 | NUR ---
PT IN BED WATCHING TV. NO NEEDS MADE KNOWN AT THIS TIME. CALL LIGHT IN REACH.
--- NOTE | 2016-06-05 04:28 | NUR ---
PT IN BED WITH EYES CLOSED AND CHEST RISING. NO SIGN/SYMPTOMS OF DISTRESS NOTED. CALL LIGHT IN REACH.
[2016-06-05 05:35] LABS: INR 2.31 (0.85-1.17); PROTIME 25.5 SECONDS (11.6-15.0)
--- NOTE | 2016-06-05 06:41 | NUR ---
PT IN BED WITH EYES CLOSED AND CHEST RISING. NO CONCERNS NOTED AT THIS TIME. CALL LIGHT IN REACH.
--- NOTE | 2016-06-05 08:00 | NUR ---
SHIFT ASSMT COMPLETED.
[2016-06-05 10:20] VITALS: BP 117/65
--- NOTE | 2016-06-05 20:25 | NUR ---
PT UP ON SIDE OF BED GOING TO BATHROOM. UP WITHOUT ASSIST AND SLOW STEADY GAIT WITH WALKER NOTED. NO CONCERNS NOTED AT THIS TIME. CALL LIGHT IN REACH.
[2016-06-05 20:34] VITALS: BP 119/70
--- NOTE | 2016-06-06 01:53 | NUR ---
PT IN BED WITH EYES CLOSED AND CHEST RISING. NO SIGN/SYMPTOMS OF DISTRESS NOTED. CALL LIGHT IN REACH.
--- NOTE | 2016-06-06 05:37 | NUR ---
PT IN BED WITH EYES OPEN. RECEIVED MEDICATIONS PER MAR WITHOUT DIFFICULTY. NO CONCERN OR NEEDS MADE KNOWN AT THIS TIME. CALL LIGHT IN REACH.
[2016-06-06 05:57] LABS: BASOPHILS 0.3 % (0.0-2.0); EOSINOPHILS 0.9 % (0-7); HEMATOCRIT 33.9 % (36.0-48.0); HEMOGLOBIN 10.5 g/dL (12-16); IMMATURE GRANULOCYTES 0.8 % (0-5); LYMPHOCYTES 36.3 % (15-50); MCH 28.2 pg (26.0-34.0); MCV 90.9 fL (80.0-100.0); MEAN PLATELET VOLUME 8.8 fL (7.4-10.4); MONOCYTES 13.6 % (2-11); NEUTROPHILS 48.1 % (40-80); PLATELET COUNT 407 10x3/uL (130-400); RBC 3.73 10x6/uL (4.00-5.40); RDW 17.5 % (11.5-14.5); WBC 7.9 10x3/uL (4.8-10.8)
[2016-06-06 06:09] LABS: INR 2.38 (0.85-1.17); PROTIME 26.1 SECONDS (11.6-15.0)
[2016-06-06 06:23] LABS: ANION GAP 9.8 mmol/L (8-16); CALCIUM 8.9 mg/dL (8.5-10.1); CARBON DIOXIDE 37.2 mmol/L (21.0-32.0); CREATININE - SERUM 1.2 mg/dL (0.6-1.3)
--- NOTE | 2016-06-06 07:27 | NUR ---
RESTING QUIETLY IN BED CALL LIGHT IN REACH
[2016-06-06 08:57] VITALS: BP 133/74
[2016-06-06] MEDS ORDERED: BUMEX 1 MG TAB1 MG PO (09:20)
[2016-06-06] MEDS ORDERED: COUMADIN1 MG PO (09:20)
[2016-06-06] MEDS ORDERED: K-DUR20 MEQ PO (09:20)
--- NOTE | 2016-06-06 10:42 | NUR ---
PATIENT DISCHARGING HOME WITH FAMILY. [facility] WILL RESUME CARE AT HOME. NO NEW DME NEEDED AT THIS TIME. DR. MELENDEZ 06/10/16 @ 3:00. PATIENT CHOICE FORM FOR HH AND [facility] FORM EXPLAINED , SIGNED AND FILED IN CHART. PATIENT EDUCATED ON SIGNS AND SYMPTOMS OF CHF, EDEMA IN LEGS AND SOB. ALL ORDERS HAVE BEEN FAXED WITH CONFORMATION RECIEVED
--- NOTE | 2016-06-06 12:02 | NUR ---
SITTING IN W/C IN ROOM WAITING TO GO [place]OME.
--- NOTE | 2016-06-06 14:04 | NUR ---
D/C HOME WITH ALL PERSONAL BELONGINGS. WENT OVER D/C INSTRUCTIONS WITH PT. IGOR CALLED INTO [facility] IN [place]. LEFT FLOOR IN W/C. STILL HAS 4+ EDEMA TO BLE, USES WALKER FOR AMBULATION ASST. IS OXYGEN DEPENDENT
== END 2016-06-06 13:30 | disposition home health service (06) | DRG 292 ==
LOC: D.REHAB 21:10
PROVIDERS: ADMIT Emergency Medicine
DX: I50.21 Acute systolic (congestive) heart failure (principal); D62 Acute posthemorrhagic anemia; I48.2 Chronic atrial fibrillation; Z79.01 Long term (current) use of anticoagulants; I11.0 Hypertensive heart disease with heart failure; I34.0 Nonrheumatic mitral (valve) insufficiency; E87.6 Hypokalemia; E83.42 Hypomagnesemia; R06.01 Orthopnea; R06.00 Dyspnea, unspecified; Z95.0 Presence of cardiac pacemaker; F32.9 Major depressive disorder, single episode, unspecified; J44.9 Chronic obstructive pulmonary disease, unspecified

== ENCOUNTER 2016-09-07 06:51 | Inpatient (IN) | payer MEDICARE ==
[~2016-09-07] VITALS: Ht 165.1 cm; Wt 100.0 kg
[~2016-09-07 06:51] MED LIST changes: +BUMEX 1 MG TAB1 MG PO; +K-DUR20 MEQ PO
[2016-09-07 07:41] LABS: BASOPHILS 0.2 % (0-2); EOSINOPHILS 0.2 % (0-7); HEMATOCRIT 34.3 % (36.0-48.0); HEMOGLOBIN 10.3 g/dL (12-16); IMMATURE GRANULOCYTES 0.3 % (0-5); LYMPHOCYTES 10.7 % (15-50); MCH 28.1 pg (26.0-34.0); MCV 93.7 fL (80.0-100.0); MONOCYTES 10.7 % (2-11); NEUTROPHILS 77.9 % (40-80); RBC 3.66 10x6/uL (4.00-5.40); RDW 16.5 % (11.5-14.5); WBC 11.9 10x3/uL (4.8-10.8)
[2016-09-07 07:46] LABS: PLATELET COUNT 269 10x3/uL (130-400)
[2016-09-07 07:55] LABS: ALBUMIN 3.1 g/dL (3.4-5.0); ALKALINE PHOSPHATASE 135 U/L (46-116); ALT (SGPT) 24 U/L (10-68); BILIRUBIN - TOTAL 0.85 mg/dL (0.2-1.3); CALC OSMOLALITY 280 mosm/kg (275-300); CALCIUM 8.9 mg/dL (8.5-10.1); CARBON DIOXIDE 30.2 mmol/L (21.0-32.0); CHLORIDE - SERUM 99 mmol/L (98-107); CREATININE - SERUM 1.2 mg/dL (0.6-1.3); GLUCOSE 149 mg/dL (74-106); POTASSIUM - SERUM 3.1 mmol/L (3.5-5.1); PROTEIN - SERUM 7.3 g/dL (6.4-8.2); SODIUM 139 mmol/L (136-145); UREA NITROGEN 13 mg/dL (7-18); eGFR NON AFRICAN AMERICAN 47 mL/min (90-120)
[2016-09-07 07:58] LABS: CREATINE KINASE 33 UL (21-215)
[2016-09-07 08:00] LABS: TROPONIN-I < 0.017 ng/mL (0.000-0.060)
[2016-09-07 08:07] LABS: APTT 53.1 SECONDS (22.8-39.4); INR 2.89 (0.85-1.17); PROTIME 30.4 SECONDS (11.6-15.0)
[2016-09-07 09:29] LABS: MAGNESIUM - SERUM 1.7 mg/dL (1.8-2.4)
--- NOTE | 2016-09-07 11:28 | NUR ---
PT REC'D TO ROOM VIA WC, ACCOMPANIED BY ER STAFF. AAOX4. TACHYPNIC WITH BILAT EXPIRATORY AND INSPIRATORY WHEEZES TO UPPER LOBES, AND CRACKLES BILAT TO LOWER LOBES. REGULAR HEART RATE AND RHYTHM. BOWEL SOUNDS ACTIVE X4 QUADRANTS. SKIN CDI. +4 PITTING EDEMA BILAT TO FEET, +3 TO ANKLES, AND +2 FROM COSME TO KNEES. PIV TO L AC FREE OF REDNESS AND SWELLING. IV LEVAQUIN INFUSION FINISHED. FLUSHED IV AND SALINE LOCKED AT THIS TIME. SCD'S PLACED ON. BSC PROVIDED. BED LOW, CALL LIGHT IN REACH, DENIES NEEDS. CPOC.
--- NOTE | 2016-09-07 11:30 | NUR ---
PT REPORT REC'D FROM KAY JONES. ROOM READY AND AWAITING PT ARRIVAL.
[2016-09-07] MEDS ORDERED: SINGULAIR10 MG PO (11:56)
[2016-09-07] MEDS ORDERED: VITAMIN D31000 UNIT PO (11:57)
[2016-09-07] MEDS ORDERED: MUCINEX1200 MG/BO PO (11:59)
[2016-09-07] MEDS ORDERED: BETAPACE 80 MG80 MG PO (12:00)
[2016-09-07] MEDS ORDERED: LASIX40 MG PO (12:03)
[2016-09-07 13:10] VITALS: BP 95/55
[2016-09-07 13:30] VITALS: BP 95/55; Ht 165.1 cm; Wt 100.0 kg
[2016-09-07 15:29] VITALS: BP 123/73
[2016-09-07 19:00] VITALS: BP 108/56
--- NOTE | 2016-09-07 19:40 | NUR ---
RECIEVED SHIFT REPORT. PT IS LYING IN BED. ALERT AND ORIENTED AND ABLE TO VERBALIZE NEEDS. IV IS PATENT AND SALINE LOC AT THIS TIME. PT IS AMBULATORY WITH ASSISTANCE. SCD'S ON. O2 @ 3 PER NASAL CANNULA. PT STATES PAIN IS 2/10. NO NEEDS ARE VERBALIZED AT THIS TIME. WILL CONTINUE TO MONITOR. SIDE RAILS ARE UP X 2. BED IS IN LOWEST POSITION. CHIRAG MAT IS ON FOR SAFETY. CALL LIGHT IS WITHIN REACH.
--- NOTE | 2016-09-07 21:20 | NUR ---
SHIFT ASSESSMENT COMPLETED. NIGHT MEDS GIVEN WITH NO PROBLEMS. MUCINEX ADMINISTERED EARLY DUE TO PT NOT HAVING ANY AND WILL CALL PHARMACY IN AM TO RETIME MEDICATION FOR 9:00 AND 21:00. NO NEEDS ARE VOICED. WILL MONITOR. SIDE RAILS X 2. BED LOW. CHIRAG ON. CALL LIGHT IN REACH.
[2016-09-07 22:04] LABS: BASOPHILS 0.1 % (0-2); EOSINOPHILS 0.2 % (0-7); HEMATOCRIT 32.5 % (36.0-48.0); IMMATURE GRANULOCYTES 0.3 % (0-5); LYMPHOCYTES 21.8 % (15-50); MCH 28.3 pg (26.0-34.0); MCHC 30.8 g/dL (31.0-37.0); MCV 92.1 fL (80.0-100.0); MEAN PLATELET VOLUME 9.4 fL (7.4-10.4); MONOCYTES 14.2 % (2-11); NEUTROPHILS 63.4 % (40-80); PLATELET COUNT 265 10x3/uL (130-400); RBC 3.53 10x6/uL (4.00-5.40); RDW 16.6 % (11.5-14.5); WBC 9.6 10x3/uL (4.8-10.8)
[2016-09-07 22:11] LABS: INR 1.9 (0.85-1.17); PROTIME 21.7 SECONDS (11.6-15.0)
[2016-09-07 22:14] LABS: CALCIUM 8.5 mg/dL (8.5-10.1)
[2016-09-07 22:21] LABS: POTASSIUM - SERUM 3.4 mmol/L (3.5-5.1)
[2016-09-07 22:25] LABS: ANION GAP 11.4 mmol/L (8-16)
--- NOTE | 2016-09-07 23:06 | NUR ---
CALLED INDUSTRY [employer]PERATIONS INVESTIGATOR ERIN AT THIS TIME. PT IS NAUSEATED AND WITHOUT ZOFRAN AT THIS TIME. ERIN TO GO THROUGH ER DOCTOR TO GET ORDER.
[2016-09-08] VITALS: BP 94/66
[2016-09-08 04:00] VITALS: BP 91/56
[2016-09-08 06:09] LABS: INR 2.05 (0.85-1.17); PROTIME 23.2 SECONDS (11.6-15.0)
[2016-09-08 06:14] LABS: BASOPHILS 0.2 % (0-2); EOSINOPHILS 0 % (0-7); HEMATOCRIT 36.1 % (36.0-48.0); HEMOGLOBIN 10.8 g/dL (12-16); IMMATURE GRANULOCYTES 1.4 % (0-5); MCH 28.2 pg (26.0-34.0); MCHC 29.9 g/dL (31.0-37.0); MEAN PLATELET VOLUME 9.4 fL (7.4-10.4); MONOCYTES 10.6 % (2-11); NEUTROPHILS 55.8 % (40-80); PLATELET COUNT 301 10x3/uL (130-400); RBC 3.83 10x6/uL (4.00-5.40); RDW 16.5 % (11.5-14.5)
[2016-09-08 06:20] LABS: ALBUMIN 2.9 g/dL (3.4-5.0); BILIRUBIN - TOTAL 2.47 mg/dL (0.2-1.3); CALCIUM 9.2 mg/dL (8.5-10.1); CARBON DIOXIDE 24.4 mmol/L (21.0-32.0)
[2016-09-08 06:21] LABS: ANION GAP 18.6 mmol/L (8-16); CREATININE - SERUM 1.6 mg/dL (0.6-1.3)
[2016-09-08 06:23] LABS: MCV 94.3 fL (80.0-100.0); WBC 16.2 10x3/uL (4.8-10.8)
[2016-09-08 08:27] VITALS: BP 144/57
--- NOTE | 2016-09-08 09:10 | NUR ---
ADMINISTERED MORNING MEDICATIONS, PATIENT SAT UP ON THE SIDE OF THE BED TO TAKE MEDICATIONS. ASSISTED PATIENT, HELD HER MEDICATION CUP FOR HER, PUT PILLS IN HER MOUTH 1-2 AT A TIME. PATIENT SWALLOWED WITHOUT DIFFICULTY. PATIENT DID NOT EAT ANY BREAKFAST. ORDERED PATIENT AN ENSURE. PATIENT VERY WEAK AND VERBALIZED FEELING TIRED. AT BEDSIDE. ASSISTED PATIENT GETTING BACK IN BED AND LAYING DOWN.
--- NOTE | 2016-09-08 09:27 | NUR ---
FLUSHED IV TO RIGHT AC, LEAKED. D/C IV WITH CATHETER INTACT. CALLED GEORGE, VENOUS ACCESS NURSE, ASKED HER IF SHE CAN TRY TO START AN IV. SHE SAID SHE WILL BE OVER SOON.
--- NOTE | 2016-09-08 09:35 | NUR ---
GEORGE, VENOUS ACCESS NURSE IN ROOM
--- NOTE | 2016-09-08 09:40 | NUR ---
IV ACCESS-22 GAUGE INSERTED IN LEFT INNER FOREARM. GEORGE HERRN
--- NOTE | 2016-09-08 10:40 | NUR ---
OXYACETYLENE BURNER CALLED AND SAID TO CHECK PATIENT BECAUSE HER PACER IS GETTING WIDER AND WIDER. WENT IN PATIENT'S ROOM, PATIENT LAYING ON HER RIGHT SIDE, PALE, UNRESPONSIVE. CALLED RAPID RESPONSE. CHECKED FOR A PULSE, NO PULSE PER PALPATION. CALLED CODE BLUE. SEE CODE BLUE SHEET.
== END 2016-09-08 10:58 | DRG 292 ==
LOC: D.ER 06:51 → D.MS 10:17
PROVIDERS: Emergency Medicine; Internal Medicine Cardiovascular Disease; ADMIT Family Medicine
PROC: 5A12012 Performance of Cardiac Output, Single, Manual (ICD-10-PCS; principal; 2016-09-08)
DX: I11.0 Hypertensive heart disease with heart failure (principal); D62 Acute posthemorrhagic anemia; J96.10 Chronic respiratory failure, unspecified whether with hypoxia or hypercapnia; N17.9 Acute kidney failure, unspecified; I48.2 Chronic atrial fibrillation; I50.23 Acute on chronic systolic (congestive) heart failure; J44.9 Chronic obstructive pulmonary disease, unspecified; K21.9 Gastro-esophageal reflux disease without esophagitis; E87.6 Hypokalemia; I27.2 Other secondary pulmonary hypertension; E83.42 Hypomagnesemia; Z99.81 Dependence on supplemental oxygen; Z95.0 Presence of cardiac pacemaker; Z86.74 Personal history of sudden cardiac arrest; Z86.73 Personal history of transient ischemic attack (TIA), and cerebral infarction without residual deficits